=== PATIENT | female | born 1995 | race Caucasian/White ===

== ENCOUNTER → 2017-07-11 | Outpatient (CLI) | payer OTHER ==
[2017-07-11 11:02] LABS: CH 28.5; CHCM 34.1; HDW 2.95; HGB 11.3 gm/dL (11.4-16.0); MCHC 33.4 g/dL (31.0-37.0); MCV 83.9 fL (80.0-100.0); Mean Platelet Volume 6.3; RBC 4.05 m/uL (3.80-5.40); RDW 14.4 % (11.5-15.5); WBC 7.5 k/uL (3.8-10.6)
[2017-07-11 11:21] LABS: Glucose 100 mg/dL (74-99); Non-African American GFR(MDRD) >60 (>60 ml/min/1.73 sqM)
[2017-07-11 17:31] LABS: Treponemal Ab Non-Reactive (Non-Reactive)
== END | disposition home or self-care (01) ==
LOC: LABWHC1 10:44
PROVIDERS: ATTEND Obstetrics & Gynecology
DX: O26.812 Pregnancy related exhaustion and fatigue, second trimester (principal); Z3A.00 Weeks of gestation of pregnancy not specified
CPT/HCPCS: 36415; 82565; 82947; 85027; 86762; 86777; 86778; 86780; 86850; 86900; 86901; 87340; 87390

== ENCOUNTER 2017-11-12 16:08 | Emergency (ER) | payer OTHER ==
[2017-11-12 16:26] VITALS: BP 129/74; PULSE 102; RESP 16; TEMP 98
--- NOTE | 2017-11-12 16:41 | ED ---
Fall HPI - General Chief Complaint: Fall Stated Complaint: Fall-Foot Injury Time Seen by Provider: 11/12/17 16:29 Source: patient, RN notes reviewed, old records reviewed Mode of arrival: ambulatory - History of Present Illness Initial Comments: 22-year-old female presents emergency room with a chief complaint of right foot pain. Patient reports that she was carrying VGO-5-ddxm-old child down the stairs and she slipped at the third step and fell. She reports that she twisted her right foot and landed with her foot behind her. She states she fell down approximately 3 steps. She is currently 36 weeks . Patient states that she has pain mainly in her foot. She reports that she's been having some sciatic nerve issues during this entire . She reports that from her fall she's had a minor exacerbation of this pain. Patient states she's been able to walk on it. She has no vaginal bleeding, loss of fluid. She denies any abdominal pain or cramping. She reports that she feels like she cannot feel the baby moving as much which is tending to be somewhat unusual for her.Patient denies any recent fever, chills, shortness of breath, chest pain, back pain, abdominal pain, nausea vomiting, numbness or tingling, dysuria or hematuria, constipation or diarrhea, headaches or visual changes, or any other current symptoms - Related Data Previous Rx's Medication Instructions Recorded Acetaminophen-Codeine 300-30mg 1 each PO Q4HR PRN #30 tab 06/18/16 [Tylenol w/codeine #3] Ibuprofen [Motrin] 600 mg PO Q6HR PRN #60 tab 06/18/16 Allergies Allergy/AdvReac Type Severity Reaction Status Date / Time No Known Allergies Allergy Verified 11/12/17 16:22 Review of Systems ROS Statement: Those systems with pertinent positive or pertinent negative responses have been documented in the HPI. ROS Other: All systems not noted in ROS Statement are negative. Past Medical History Past Medical History: No Reported History History of Any Multi-Drug Resistant Organisms: None Reported Past Surgical History: No Surgical Hx Reported Past Anesthesia/Blood Transfusion Reactions: No Reported Reaction Past Psychological History: No Psychological Hx Reported Smoking Status: Former smoker Past Alcohol Use History: None Reported Past Drug Use History: None Reported - Past Family History Father History Unknown: Yes Family Medical History: No Reported History General Exam - General Exam Comments Initial Comments: This patient is a 22-year-old female. No distress. Limitations: no limitations General appearance: alert, in no apparent distress Head exam: Present: atraumatic, normocephalic, normal inspection Eye exam: Present: normal appearance, PERRL, EOMI. Absent: scleral icterus, conjunctival injection, periorbital swelling ENT exam: Present: normal exam, mucous membranes moist Neck exam: Present: normal inspection. Absent: tenderness, meningismus, lymphadenopathy Respiratory exam: Present: normal lung sounds bilaterally. Absent: respiratory distress, wheezes, rales, rhonchi, stridor Cardiovascular Exam: Present: regular rate, normal rhythm, normal heart sounds. Absent: systolic murmur, diastolic murmur, rubs, gallop, clicks GI/Abdominal exam: Present: soft, normal bowel sounds, other (Patient has obvious abdomen, she reports she started 6 weeks. No pain.). Absent: distended, tenderness, guarding, rebound, rigid Extremities exam: Present: normal inspection, full ROM, normal capillary refill. Absent: tenderness, pedal edema, joint swelling, calf tenderness Right Lower Leg exam: Present: normal inspection, full ROM Ankle exam: Present: normal inspection, full ROM Foot/Toe exam: Present: normal inspection, full ROM, tenderness (over dorsum of foot) Neurovascular tendon exam: Present: no vascular compromise Back exam: Present: normal inspection Neurological exam: Present: alert, oriented X3, CN II-XII intact Psychiatric exam: Present: normal affect, normal mood Course Vital Signs 11/12/17 16:22 Temperature 98 F Pulse Rate 102 H Respiratory 16 Rate Blood Pressure 129/74 O2 Sat by Pulse 98 Oximetry Medical Decision Making - Medical Decision Making This patient is a 22-year-old female currently 36 weeks reports she slipped down 3 stairs and twisted and rolled her right ankle. She also started having some sciatica pain rating down the right leg. It is slightly worsened the fall. Patient does have some pain and swelling over the dorsum of the right foot. X-ray was obtained shows no evidence of any acute abdomen or maladies. I discussed with patient. She also states that she feels like she cannot feel her baby moving as much over the past few days. We did do heart tones which were 130 bpm. patient was given an Chris wrap for her foot. Patient will be going upstairs for monitoring for the next half hour. Patient agrees to this. All questions were answered and return parameters discussed. Discussed icing, resting and elevating the foot. - Radiology Data Radiology results: report reviewed Patient has a normal right foot x-ray. Disposition Clinical Impression: Contusion of right foot, Fall, 36 weeks gestation of Disposition: HOME SELF-CARE Condition: Good Instructions: Foot Contusion (ED) Additional Instructions: Patient advised to follow-up with primary care provider and go directly to OB/ [employer] for monitoring after this. Wear the Chris wrap around the foot and ice it as much as possible. Patient can take Tylenol for pain. Referrals: None,Stated [Primary Care Provider] - 1-2 days Time of Disposition: 17:31
--- NOTE | 2017-11-12 16:56 | XR ---
EXAMINATION TYPE: XR foot complete RT DATE OF EXAM: 11/12/2017 COMPARISON: NONE HISTORY: Three-view right foot TECHNIQUE: Generalized pain following fall FINDINGS: Right foot is examined in 3 views. The patient was shielded during the exam. No acute fract ures are evident. Soft tissues appear normal. Follow-up exam can be performed 7-10 days from acute trauma for continued pain. IMPRESSION: 1. Normal three-view right foot
== END 2017-11-12 17:36 | disposition home or self-care (01) ==
LOC: EC 16:08
DX: O9A.213 Injury, poisoning and certain other consequences of external causes complicating pregnancy, third trimester (principal); S90.31XA Contusion of right foot, initial encounter; M54.30 Sciatica, unspecified side; Z87.891 Personal history of nicotine dependence; W10.9XXA Fall (on) (from) unspecified stairs and steps, initial encounter
CPT/HCPCS: 99284 ×2; 59025; 73630; G0463; 99213

== ENCOUNTER 2017-11-12 17:45 | Outpatient (CLI) | payer OTHER ==
[2017-11-12 18:35] VITALS: BP 132/72; PULSE 106; RESP 16; TEMP 97.6
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
== END 2017-11-12 19:10 | disposition home or self-care (01) ==
LOC: FBPOP 17:45
PROVIDERS: ATTEND Obstetrics & Gynecology
DX: O9A.213 Injury, poisoning and certain other consequences of external causes complicating pregnancy, third trimester (principal); G89.11 Acute pain due to trauma; Z3A.36 36 weeks gestation of pregnancy
CPT/HCPCS: 59025; G0463; 99213

== ENCOUNTER 2017-11-17 09:44 | Inpatient (IN) | payer OTHER ==
[2017-11-17] MEDS ORDERED: ceFAZolin IN SWFI 2 GM/20 ML SYRINGE IVP ONE ×2 (10:04→16:49)
[2017-11-17] MEDS ORDERED: CITRIC ACID-SODIUM CITRATE 15 ML CUP PO ONE (10:04)
[2017-11-17 10:24] VITALS: BMI 35.2
[2017-11-17] MEDS: LACTATED RINGERS 1,000 ML IV SCH ×2 (10:39→14:38)
[2017-11-17 12:12] LABS: Basophils % (A) 0 %; Eosinophils # (A) 0.1 k/uL (0-0.7); Eosinophils % (A) 1 %; HCT 31.9 % (34.0-46.0); HGB 10.4 gm/dL (11.4-16.0); Hypochromasia Slight; Lymphocytes # (A) 1.5 k/uL (1.0-4.8); Lymphocytes % (A) 21 %; MCH 25.9 pg (25.0-35.0); MCHC 32.7 g/dL (31.0-37.0); Mean Platelet Volume 10.1; Monocytes # (A) 0.3 k/uL (0-1.0); Monocytes % (A) 4 %; Neutrophils # (A) 5.3 k/uL (1.3-7.7); Neutrophils % (A) 73 %; Poikilocytosis Slight; RBC 4.03 m/uL (3.80-5.40); RDW 14.9 % (11.5-15.5); WBC 7.3 k/uL (3.8-10.6)
[2017-11-17 12:30] LABS: Platelet Count 30 k/uL (150-450)
[2017-11-17 12:31] LABS: MCV 79.2 fL (80.0-100.0)
[2017-11-17 14:32] LABS: Basophils % (A) 0 %; Eosinophils # (A) 0.1 k/uL (0-0.7); Eosinophils % (A) 1 %; HCT 31.3 % (34.0-46.0); HGB 10.4 gm/dL (11.4-16.0); Lymphocytes # (A) 1.6 k/uL (1.0-4.8); Lymphocytes % (A) 20 %; MCH 26.3 pg (25.0-35.0); MCHC 33.4 g/dL (31.0-37.0); MCV 78.8 fL (80.0-100.0); Mean Platelet Volume 11.6; Monocytes # (A) 0.2 k/uL (0-1.0); Monocytes % (A) 3 %; Neutrophils % (A) 75 %; Poikilocytosis Slight; RBC 3.97 m/uL (3.80-5.40); RDW 15.1 % (11.5-15.5); WBC 7.9 k/uL (3.8-10.6)
[2017-11-17 14:35] LABS: Platelet Count 29 k/uL (150-450)
[2017-11-17 14:46] LABS: Partial Thromboplastin Time 21.9 sec (22.0-30.0); Prothrombin Time 9.6 sec (9.0-12.0)
[2017-11-17 14:47] LABS: ALT 26 U/L (9-52); AST 18 U/L (14-36); Albumin 3.1 g/dL (3.5-5.0); Alkaline Phosphatase 180 U/L (38-126); Anion Gap 9 mmol/L; Blood Urea Nitrogen 6 mg/dL (7-17); Calcium 8.8 mg/dL (8.4-10.2); Carbon Dioxide 22 mmol/L (22-30); Chloride 106 mmol/L (98-107); Glucose 70 mg/dL (74-99); LDH 357 U/L (313-618); Potassium 3.9 mmol/L (3.5-5.1); Sodium 137 mmol/L (137-145); Total Bilirubin 0.7 mg/dL (0.2-1.3); Uric Acid 5.4 mg/dL (3.7-7.4)
[2017-11-17 14:59] LABS: Anisocytosis (M) Present; Poikilocytosis (M) Present
[2017-11-17 15:00] LABS: Large Platelets Present
[2017-11-17] MEDS ORDERED: ceFAZolin 1,000 MG VIAL ONE (17:09)
[2017-11-17] MEDS ORDERED: MIDAZOLAM 2 MG/2 ML VIAL ONE (17:09)
[2017-11-17] MEDS ORDERED: fentaNYL (PF) 50 MCG/ML 2 ML AMP ONE (17:09)
[2017-11-17] MEDS ORDERED: OXYTOCIN 10 UNIT/ML 1 ML VIAL ONE (17:09)
[2017-11-17] MEDS ORDERED: SUCCINYLCHOLINE CHLORIDE 100 MG/5 ML SYR IV ONE (17:09)
[2017-11-17] MEDS ORDERED: ROCURONIUM BROMIDE 10 MG/ML 10 ML VIAL IV ONE (17:09)
[2017-11-17] MEDS ORDERED: HYDROmorphone (PF) 1 MG/ML ONE (17:09)
[2017-11-17] MEDS ORDERED: NEOSTIGMINE 1 MG/ML 10 ML VIAL ONE (17:09)
[2017-11-17] MEDS ORDERED: ONDANSETRON 4 MG/2 ML VIAL ONE (17:09)
[2017-11-17] MEDS ORDERED: PROPOFOL 10 MG/ML 20 ML VIAL IV ONE (17:09)
[2017-11-17] MEDS ORDERED: LIDOCAINE 1% INJ 10MG/ML (20 ML MDV) ONE (17:09)
[2017-11-17] MEDS ORDERED: diphenhydrAMINE 50 MG CAP PO PRN (17:57)
[2017-11-17] MEDS ORDERED: ONDANSETRON 4 MG/2 ML VIAL IVP PRN (17:57)
[2017-11-17] MEDS ORDERED: NALOXONE 0.4 MG/ML 1 ML VIAL IV PRN (17:57)
[2017-11-17] MEDS ORDERED: diphenhydrAMINE 50 MG/ML 1 ML VIAL IVP PRN ×2 (17:57)
[2017-11-17] MEDS ORDERED: ZOLPIDEM 5 MG TAB PO PRN (17:57)
[2017-11-17] MEDS ORDERED: KETOROLAC 30 MG/ML 1 ML VIAL IVP PRN (17:57)
[2017-11-17] MEDS ORDERED: diphenhydrAMINE 25 MG CAP PO PRN (17:57)
[2017-11-17] MEDS ORDERED: METOCLOPRAMIDE 5 MG/ML 2 ML VIAL IVP PRN (17:57)
[2017-11-17] MEDS ORDERED: IBUPROFEN 600 MG TAB PO PRN (17:57)
[2017-11-17] MEDS ORDERED: ACETAMINOPHEN TAB 325 MG TAB PO PRN (17:57)
[2017-11-17] MEDS ORDERED: LACTATED RINGERS 1,000 ML IV SCH (18:00)
--- NOTE | 2017-11-17 18:02 | P.HPOB ---
History of Present Illness H&P Date: 11/17/17 Chief Complaint: Intrauterine at term: Spontaneous rupture membranes: Thrombocytop Patient is a 22-year-old with a prior section that comes in to labor and delivery this afternoon following spontaneous rupture of membranes. Her course had been unremarkable and she had been doing well. She was scheduled for section in 2 weeks. The only finding during the had been that of likely macrosomia. However today on the preop labs it was noted that her platelet count was extremely low. Repeat platelet count was 30,000. Due to significant thrombocytopenia it was decided to wait and not do her immediately and to defer it until platelets could be ordered. 2 units of same donor platelets were ordered and needed to be brought in from out of town. She did receive 2 doses of antibiotics as a precaution one on arrival and one shortly before incision. I did speak with hematology as well as M and this was coordinated effort to limit her wrists throughout this process. Her pertinent labs prior to this included O+ blood type Rh antibody was negative, rubella immune, hepatitis B surface antigen/RPR/HIV were all negative. Her last CBC was in August which showed a platelet count of 244, 000. 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 On physical exam vital signs are stable and afebrile. Heart regular, lungs clear, extremities are without pain. Osteopathic exams unremarkable. Her cervix was initially closed thick and high. heart tones were in the 130s to 140s and reactive however. Assessment intrauterine at 37 weeks with prior section family planning as well as thrombocytopenia. Plan repeat low transverse section with 2 units of platelets prior to incision and very close observation in the hospital. As well as tubal ligation with the section Past Medical History Past Medical History: No Reported History History of Any Multi-Drug Resistant Organisms: None Reported Past Surgical History: No Surgical Hx Reported Past Anesthesia/Blood Transfusion Reactions: No Reported Reaction Past Psychological History: No Psychological Hx Reported Smoking Status: Never smoker Past Alcohol Use History: None Reported Past Drug Use History: None Reported - Past Family History Father History Unknown: Yes Family Medical History: No Reported History Medications and Allergies Home Medications Medication Instructions Recorded Confirmed Type Pnv,Calcium 72/Iron/Folic Acid 1 tab PO DAILY 11/12/17 11/12/17 History [ Plus Tablet] Allergies Allergy/AdvReac Type Severity Reaction Status Date / Time No Known Allergies Allergy Verified 11/17/17 10:04 Exam Osteopathic Statement: *. No significant issues noted on an osteopathic structural exam other than those noted in the History and Physical/Consult. - Vital Signs Vital signs: Vital Signs Temp Pulse Pulse Resp BP BP Pulse Ox 11/17/17 16:38 98.2 F 101 H 16 125/71 11/17/17 16:28 98.0 F 95 16 125/63 98 11/17/17 15:59 98.2 F 100 16 131/76 11/17/17 15:58 97.9 F 96 18 123/73 11/17/17 15:49 98.0 F 94 18 120/77 11/17/17 10:41 96.9 F L 95 18 129/76 95 11/17/17 10:17 96.9 F L 95 16 129/76 99 Intake and Output 11/17/17 11/17/17 11/17/17 06:59 14:59 22:59 Intake Total 1000 415 Output Total 175 Balance 825 415 Intake: Intake, IV Titration 1000 Amount Lactated Ringers 1,000 ml 1000 @ 125 mls/hr IV .Q8H [facility] Rx#:[id number] Oral 0 Blood Product 415 Platelet Pheresis Acda2 214 Unit [id number] Platelet Pheresis Acda3 201 Unit [id number] Output: Urine 175 Other: Weight 90.265 kg Patient Weight 11/18/17 06:59 Weight 90.265 kg Results Result Diagrams: 11/17/17 14:21 11/17/17 14:21 Abnormal Lab Results - Last 24 Hours (Table) 11/17/17 11/17/17 11/17/17 Range/Units 11:45 14:21 14:21 Hgb 10.4 L (11.4-16.0) gm/dL Hct 31.9 L (34.0-46.0) % MCV 79.2 L D (80.0-100.0) fL Plt Count 30 L* D (150-450) k/uL Pathologist Review APTT 21.9 L (22.0-30.0) sec Fibrinogen 504 H (200-500) mg/dL BUN 6 L (7-17) mg/dL Creatinine 0.45 L (0.52-1.04) mg/dL Glucose 70 L (74-99) mg/dL Alkaline Phosphatase 180 H (38-126) U/L Total Protein 6.0 L (6.3-8.2) g/dL Albumin 3.1 L (3.5-5.0) g/dL 11/17/17 Range/Units 14:21 Hgb 10.4 L (11.4-16.0) gm/dL Hct 31.3 L (34.0-46.0) % MCV 78.8 L (80.0-100.0) fL Plt Count 29 L* (150-450) k/uL Pathologist Review See comment A APTT (22.0-30.0) sec Fibrinogen (200-500) mg/dL BUN (7-17) mg/dL Creatinine (0.52-1.04) mg/dL Glucose (74-99) mg/dL Alkaline Phosphatase (38-126) U/L Total Protein (6.3-8.2) g/dL Albumin (3.5-5.0) g/dL
--- NOTE | 2017-11-17 18:05 | P.OP ---
Date of Procedure: 11/17/17 Preoperative Diagnosis: Intrauterine at term: Prior section: Family planning: Thrombocytopenia Postoperative Diagnosis: Same Procedure(s) Performed: Repeat low transverse section with bilateral tubal occlusion Anesthesia: BETSY Surgeon: Freddy Funk Sock Drier #1: Kamlesh Monroe Estimated Blood Loss (ml): 400 IV fluids (ml): 900 Urine output (ml): 100 Pathology: other (Placenta) Condition: stable Disposition: floor Operative Findings: Male scores of 8 and 9 at one and 5 minutes respectively and a weight of 8 lbs. 3 oz. Description of Procedure: Patient was taken to the operating suite where a general anesthetic was found be adequate. General anesthetic was necessary due to low platelet count. Pfannenstiel skin incision was made and this incision was then carried through to underlying layer of the fascia with Bovie cautery. During this process any small bleeders were cauterized immediately. Once fascial incision was nicked it was extended laterally with Melara scissors. Superior and inferior aspect of this incision were then grasped tented up and bluntly and sharply dissected off the rectus muscles. Rectus muscles were then divided in the midline and blunt dissection through the peritoneum was made. This opening was then extended superiorly and inferiorly with good visualization of both bowel bladder. Bladder blade was then placed and the bladder flap was identified and entered with metastases scissors and carried across the face of the uterus with Metzenbaum scissors. Bladder flap was digitally created and removed from the operative field. Knife was then used to incise uterus this opening was fully developed with a hemostat and then was extended bluntly. Head was then atraumatically delivered and mouth nares were bulb suctioned. Shoulders then delivered followed by the remainder the baby and the umbilical cord was then clamped and cut in usual fashion. Nursery personnel was present to assume care. Placenta was then delivered intact and Pitocin was added to the IV. Uterus was then exteriorized cleared of clots and debris and closed in 2 layers with 0 Vicryl suture. Once excellent hemostasis was obtained 3-0 Vicryl used to reapproximate the bladder flap. Blood and debris was then suctioned the posterior cul-de-sac and fallopian tubes were identified. A Filshie clip was used to occlude the fallopian tubes it was clipped approximately 2 cm from uterine cornu. No bleeding is noted in the mesosalpinx therefore uterus was reinserted into the abdomen and the peritoneal layer was reapproximated with 0 Vicryl suture. Fascial layer was then closed Lobac suture one layer of 3-0 Vicryl was placed in the deep subcuticular tissues to reapproximate skin and close space and then the skin was closed Fahad. Overall patient tolerated surgery very well sponge, lap, needle counts were all correct 2. Patient was then taken to the recovery room in stable and satisfactory condition.
[2017-11-17] MEDS: HYDROmorphone PCA 5 MG/25 ML SYRINGE IV PRN ×2 (18:40→22:37)
[2017-11-17] MEDS: SENNOSIDES-DOCUSATE SODIUM 1 EACH TAB PO SCH (23:04)
--- NOTE | 2017-11-17 23:16 | P.CONS ---
History of Present Illness - Reason for Consult Consult date: 11/17/17 Thrombocytopenia - History of Present Illness The patient is a 22-year-old white female, with no significant past medical history. The patient was admitted for , due to rupture of membranes. She had actually been scheduled for an elective in about 2 weeks. Preop CBC showed a hemoglobin in the 10-11 range, with platelets of 30,000. In 09/06 platelets had an greater than 200,000. The patient did not have any other symptoms of petechia, purpura, or mucosal bleeding. She had platelet transfusion during the time of surgery and tolerated it well. Consult was placed for further evaluation and recommendations. The patient denied any prior history of blood related problems. This is her second , and she denied any problems with her previous . Review of Systems Constitutional: Reports fatigue, Denies chills, Denies fever Eyes: denies blurred vision, denies pain Ears: deny: decreased hearing, ear discharge, earache, tinnitus Ears, nose, mouth and throat: Denies headache, Denies sore throat Cardiovascular: Reports decreased exercise tolerance Respiratory: Denies cough Gastrointestinal: Denies abdominal pain, Denies diarrhea, Denies nausea, Denies vomiting Genitourinary: Denies dysuria, Denies hematuria Menstruation: Reports as per HPI (amenorrhea due to ) Musculoskeletal: Denies myalgias Integumentary: Denies pruritus, Denies rash Neurological: Denies numbness, Denies weakness Psychiatric: Denies anxiety, Denies depression Endocrine: Denies fatigue, Denies weight change Hematologic/Lymphatic: Reports as per HPI Past Medical History Past Medical History: No Reported History History of Any Multi-Drug Resistant Organisms: None Reported Past Surgical History: No Surgical Hx Reported Past Anesthesia/Blood Transfusion Reactions: No Reported Reaction Past Psychological History: No Psychological Hx Reported Smoking Status: Never smoker Past Alcohol Use History: None Reported Past Drug Use History: None Reported - Past Family History Father History Unknown: Yes Family Medical History: No Reported History Medications and Allergies Home Medications Medication Instructions Recorded Confirmed Type Pnv,Calcium 72/Iron/Folic Acid 1 tab PO DAILY 11/12/17 11/12/17 History [ Plus Tablet] Allergies Allergy/AdvReac Type Severity Reaction Status Date / Time No Known Allergies Allergy Verified 11/17/17 10:04 Physical Exam Vitals: Vital Signs Temp Pulse Pulse Resp BP BP Pulse Ox 11/17/17 20:00 97.7 F 97 16 127/66 96 11/17/17 19:56 97.7 F 97 16 127/66 96 11/17/17 19:23 102 H 16 141/72 97 11/17/17 18:56 94 16 145/71 98 11/17/17 18:41 97 16 153/72 95 11/17/17 18:26 96 16 147/69 96 11/17/17 18:11 99 16 140/66 97 11/17/17 17:56 98.2 F 100 16 133/64 97 11/17/17 16:38 98.2 F 101 H 16 125/71 11/17/17 16:28 98.0 F 95 16 125/63 98 11/17/17 15:59 98.2 F 100 16 131/76 11/17/17 15:58 97.9 F 96 18 123/73 11/17/17 15:49 98.0 F 94 18 120/77 11/17/17 10:41 96.9 F L 95 18 129/76 95 11/17/17 10:17 96.9 F L 95 16 129/76 99 Intake and Output 11/17/17 11/17/17 11/17/17 06:59 14:59 22:59 Intake Total 1000 1030 Output Total 175 975 Balance 825 55 Intake: IV 200 Intake, IV Titration 1000 Amount Lactated Ringers 1,000 ml 1000 @ 125 mls/hr IV .Q8H [facility] Rx#:[id number] Oral 0 Blood Product 830 Platelet Pheresis Acda2 214 Unit [id number] Platelet Pheresis Acda3 201 Unit [id number] Output: Urine 175 575 Estimated Blood Loss 400 Other: Voiding Method Indwelling Catheter Weight 90.265 kg Patient Weight 11/18/17 06:59 Weight 90.265 kg - Constitutional General appearance: no acute distress - EENT Eyes: EOMI, PERRLA ENT: hearing grossly normal, normal oropharynx - Neck Neck: no lymphadenopathy Thyroid: bilateral: normal size - Respiratory Respiratory: bilateral: CTA - Cardiovascular Rhythm: regular Heart sounds: normal: S1, S2 - Gastrointestinal no unusual bleeding from incision site General gastrointestinal: soft Localized gastrointestinal: tender: diffuse - Integumentary Integumentary: normal - Neurologic drowsy, due to pain medications, but easily arousable Neurologic: CNII-XII intact - Musculoskeletal Musculoskeletal: strength equal bilaterally - Psychiatric Psychiatric: A&O x's 3, appropriate affect Results CBC & Chem 7: 11/17/17 14:21 11/17/17 14:21 Labs: Abnormal Lab Results - Last 24 Hours (Table) 11/17/17 11/17/17 11/17/17 Range/Units 11:45 14:21 14:21 Hgb 10.4 L (11.4-16.0) gm/dL Hct 31.9 L (34.0-46.0) % MCV 79.2 L D (80.0-100.0) fL Plt Count 30 L* D (150-450) k/uL Pathologist Review APTT 21.9 L (22.0-30.0) sec Fibrinogen 504 H (200-500) mg/dL BUN 6 L (7-17) mg/dL Creatinine 0.45 L (0.52-1.04) mg/dL Glucose 70 L (74-99) mg/dL Alkaline Phosphatase 180 H (38-126) U/L Total Protein 6.0 L (6.3-8.2) g/dL Albumin 3.1 L (3.5-5.0) g/dL 11/17/17 Range/Units 14:21 Hgb 10.4 L (11.4-16.0) gm/dL Hct 31.3 L (34.0-46.0) % MCV 78.8 L (80.0-100.0) fL Plt Count 29 L* (150-450) k/uL Pathologist Review See comment A APTT (22.0-30.0) sec Fibrinogen (200-500) mg/dL BUN (7-17) mg/dL Creatinine (0.52-1.04) mg/dL Glucose (74-99) mg/dL Alkaline Phosphatase (38-126) U/L Total Protein (6.3-8.2) g/dL Albumin (3.5-5.0) g/dL Comments: operative report reviewed Assessment and Plan (1) Thrombocytopenia Narrative/Plan: there is no prior history of blood related problems. The patient was asymptomatic at the time of presentation. Platelet counts in 09/06 had been normal. - The peripheral smear and noted some RBC fragments. This was initially concerning for a microangiopathic consumptive process. Therefore multiple labs were ordered and immediately reviewed. Liver enzymes, as well as renal function were normal. Coagulation parameters and fibrinogen were also normal. Hemoglobin was mildly decreased, in the expected range for the third trimester , and remained stable postsurgery. Therefore processes such as HELLP syndrome, TTP, or DIC can be safely ruled out. - Dilutional induced thrombocytopenia is unlikely, as in no situation platelet counts were relatively fall below 80-100,000. 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 The pathophysiology was discussed in detail with the patient. Other than for surgery or invasive procedures, her current count would be considered generally safe. She is asymptomatic as noted. Typically, counts would be expected to improve spontaneously over time postdelivery. If counts were to decline further and/or she showed evidence of bleeding, then active intervention will be required. - Continue to monitor counts. - Workup for underlying causes will be ordered. - I will recommend a follow-up with the patient in about 2-3 weeks in the office to follow up her platelet counts. - Roddy, thrombus or neutropenia can occur in the baby due to passive transfer of maternal antibodies. The baby has no evidence of petechia, purpura or unusual bleeding, including from the umbilical stump. A CBC can be considered, to document normal platelet count. Current Visit: Yes Status: Acute Code(s): D69.6 - THROMBOCYTOPENIA, UNSPECIFIED SNOMED Code(s): 953304856
[2017-11-18] MEDS: LACTATED RINGERS 1,000 ML IV SCH (04:11)
[2017-11-18 07:04] LABS: Basophils % (A) 0 %; Eosinophils % (A) 0 %; HCT 29.4 % (34.0-46.0); HGB 9.9 gm/dL (11.4-16.0); Lymphocytes # (A) 1.4 k/uL (1.0-4.8); Lymphocytes % (A) 14 %; MCH 26.4 pg (25.0-35.0); MCHC 33.6 g/dL (31.0-37.0); MCV 78.4 fL (80.0-100.0); Mean Platelet Volume 11.3; Monocytes # (A) 0.4 k/uL (0-1.0); Monocytes % (A) 4 %; Neutrophils # (A) 7.9 k/uL (1.3-7.7); Neutrophils % (A) 80 %; RBC 3.75 m/uL (3.80-5.40); RDW 15.3 % (11.5-15.5); WBC 9.8 k/uL (3.8-10.6)
[2017-11-18 07:24] LABS: Platelet Count 36 k/uL (150-450)
[2017-11-18] MEDS: HYDROmorphone PCA 5 MG/25 ML SYRINGE IV PRN (07:56)
[2017-11-18] MEDS: SENNOSIDES-DOCUSATE SODIUM 1 EACH TAB PO SCH ×2 (08:15→19:38)
[2017-11-18 12:11] LABS: Protein, Total 5.5 g/dL (6.2-8.2); Rheumatoid Factor 5 IU/mL (0-15)
--- NOTE | 2017-11-18 12:16 | P.PNOBGPC ---
Subjective - Subjective Principal diagnosis: Postop day 1 Interval history: Overall illicit is doing very well. She is able to ambulate and void. She does report some incisional tenderness but otherwise is doing well. 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 Her vital signs are stable and she is afebrile. Heart regular, lungs clear, extremities without pain. We did review the labs today and her hemoglobin is essentially stable at 9.9 her platelets however 36 will defer that further workup to hematology. Otherwise we'll plan to continue current care. Patient reports: Reports appetite normal, Reports voiding normally, Reports pain well controlled, Reports ambulating normally : doing well Objective - Vital Signs Latest vital signs: Vital Signs Temp Pulse Pulse Resp BP BP Pulse Ox 11/18/17 08:00 97.6 F 97 18 122/64 96 11/18/17 04:00 98.3 F 85 16 125/66 11/18/17 00:00 98.1 F 95 16 123/61 99 11/17/17 20:00 97.7 F 97 16 127/66 96 11/17/17 19:56 97.7 F 97 16 127/66 96 11/17/17 19:23 102 H 16 141/72 97 11/17/17 18:56 94 16 145/71 98 11/17/17 18:41 97 16 153/72 95 11/17/17 18:26 96 16 147/69 96 11/17/17 18:11 99 16 140/66 97 11/17/17 17:56 98.2 F 100 16 133/64 97 11/17/17 16:38 98.2 F 101 H 16 125/71 11/17/17 16:28 98.0 F 95 16 125/63 98 11/17/17 15:59 98.2 F 100 16 131/76 11/17/17 15:58 97.9 F 96 18 123/73 11/17/17 15:49 98.0 F 94 18 120/77 Intake and Output 11/17/17 11/18/17 11/18/17 22:59 06:59 14:59 Intake Total 1030 Output Total 975 1350 400 Balance 55 -1350 -400 Intake: IV 200 Blood Product 830 Platelet Pheresis Acda2 214 Unit [id number] Platelet Pheresis Acda3 201 Unit [id number] Output: Urine 575 1350 400 Uretheral (Schultz) 750 Estimated Blood Loss 400 Other: Voiding Method Indwelling Catheter # Voids 1 1 - Exam Lungs: bilateral: normal - Labs Labs: Abnormal Lab Results - Last 24 Hours (Table) 11/17/17 11/17/17 11/17/17 Range/Units 11:45 14:21 14:21 RBC (3.80-5.40) m/uL Hgb 10.4 L (11.4-16.0) gm/dL Hct 31.9 L (34.0-46.0) % MCV 79.2 L D (80.0-100.0) fL Plt Count 30 L* D (150-450) k/uL Neutrophils # (1.3-7.7) k/uL Pathologist Review APTT 21.9 L (22.0-30.0) sec Fibrinogen 504 H (200-500) mg/dL BUN 6 L (7-17) mg/dL Creatinine 0.45 L (0.52-1.04) mg/dL Glucose 70 L (74-99) mg/dL Alkaline Phosphatase 180 H (38-126) U/L Total Protein 6.0 L (6.3-8.2) g/dL Albumin 3.1 L (3.5-5.0) g/dL 11/17/17 11/18/17 Range/Units 14:21 06:41 RBC 3.75 L (3.80-5.40) m/uL Hgb 10.4 L 9.9 L (11.4-16.0) gm/dL Hct 31.3 L 29.4 L (34.0-46.0) % MCV 78.8 L 78.4 L (80.0-100.0) fL Plt Count 29 L* 36 L* (150-450) k/uL Neutrophils # 7.9 H (1.3-7.7) k/uL Pathologist Review See comment A APTT (22.0-30.0) sec Fibrinogen (200-500) mg/dL BUN (7-17) mg/dL Creatinine (0.52-1.04) mg/dL Glucose (74-99) mg/dL Alkaline Phosphatase (38-126) U/L Total Protein (6.3-8.2) g/dL Albumin (3.5-5.0) g/dL
[2017-11-18] MEDS: HYDROcodone/APAP 5-325MG 1 EACH TAB PO PRN ×2 (13:02→21:16)
[2017-11-19] MEDS: HYDROcodone/APAP 5-325MG 1 EACH TAB PO PRN ×6 (02:00→23:47)
[2017-11-19] MEDS: SENNOSIDES-DOCUSATE SODIUM 1 EACH TAB PO SCH (07:37)
--- NOTE | 2017-11-19 08:39 | P.PNOBGPC ---
Subjective - Subjective Principal diagnosis: Postop day 2 Interval history: Laisha is doing very well postop day 2. She is involuting, voiding and she is tolerating her diet. At this time she repairs very stable and will plan to continue observation today with expectation that we may be able to discharge her to home tomorrow. All other questions are answered for for today. Heart regular, lungs clear, extremities without pain. Most likely she will only have to follow up outpatient with hematology and verify that her platelets are trending backup now that her deliveries complete. Assessment postop day 2. Plan continue care Patient reports: Reports appetite normal, Reports voiding normally, Reports pain well controlled, Reports ambulating normally : doing well Objective - Vital Signs Latest vital signs: Vital Signs Temp Pulse Resp BP Pulse Ox 11/19/17 08:00 98.6 F 90 18 125/74 11/19/17 00:00 99.0 F 82 18 126/78 11/18/17 16:00 98.6 F 99 20 115/69 96 Intake and Output 11/18/17 11/19/17 11/19/17 22:59 06:59 14:59 Other: # Voids 2 - Exam Lungs: bilateral: normal Chest: Normal S1, Normal S2 Extremities: Present: normal Abdomen: Present: normal appearance, soft. Absent: distention, tenderness Incision: Present: normal, dry, intact Uterus: Present: normal, firm - Labs Labs: Abnormal Lab Results - Last 24 Hours (Table) 11/18/17 11/18/17 Range/Units 06:41 06:41 Total Protein (PEP) 5.5 L (6.2-8.2) g/dL RBC Folate 1,064 H (280 - 791) ng/mL Free [place] LC, Quant 0.19 L (0.33-1.94) mg/dL
--- NOTE | 2017-11-19 19:38 | P.PN ---
Subjective Progress Note Date: 11/19/17 Principal diagnosis: Thrombocytopenia Patient seen and examined, no severe bleeding or increased bleeding, no petechae or rash noted. Objective - Vital Signs Vital signs: Vital Signs Temp 98.4 F 11/19/17 15:22 Pulse 107 H 11/19/17 15:22 Resp 18 11/19/17 15:22 BP 130/75 11/19/17 15:22 Pulse Ox 96 11/18/17 16:00 Intake & Output 11/18/17 11/19/17 11/19/17 18:59 06:59 18:59 Output Total 400 Balance -400 Output: Urine 400 Other: # Voids 1 2 1 - Constitutional General appearance: Present: cooperative, no acute distress - EENT Eyes: Present: dentition normal, normal appearance ENT: Present: NA/AT, normal oropharynx - Neck Neck: Present: normal ROM - Respiratory Respiratory: bilateral: CTA - Cardiovascular Rhythm: regular Heart sounds: normal: S1, S2 - Gastrointestinal General gastrointestinal: Present: normal bowel sounds, tenderness - Integumentary Integumentary: Present: normal - Neurologic Neurologic Comment(s): No focal defects - Musculoskeletal Musculoskeletal: Present: gait normal - Psychiatric Psychiatric: Present: A&O x's 3, appropriate affect, intact judgment & insight - Labs CBC & Chem 7: 11/18/17 06:41 11/17/17 14:21 Labs: Abnormal Lab Results - Last 24 Hours (Table) 11/18/17 Range/Units 06:41 RBC Folate 1,064 H (280 - 791) ng/mL Assessment and Plan (1) Thrombocytopenia Narrative/Plan: This is most c/w ITP. The plt counts are in a safe range, with no clinical bleeding. These are typically expected to improve post delivery. W/U for other underlying causes negative so far -CBC today and appointment for follow-up made for patient in office in 2 wks. - Case d/w Peds re small risk of passive transfer of antibodies to the baby. The baby's CBC was checked and was normal - S/s of progression d/w pt - OK to d/c from our standpoint Current Visit: Yes Status: Acute Code(s): D69.6 - THROMBOCYTOPENIA, UNSPECIFIED SNOMED Code(s): 147204594
[2017-11-20] MEDS: HYDROcodone/APAP 5-325MG 1 EACH TAB PO PRN ×2 (04:27→08:03)
[2017-11-20 04:31] VITALS: RESP 16
[2017-11-20] MEDS: SENNOSIDES-DOCUSATE SODIUM 1 EACH TAB PO SCH ×2 (06:10→08:03)
[2017-11-20 07:59] VITALS: BP 121/71; PULSE 83; TEMP 98.5
[2017-11-20 08:04] LABS: Basophils % (A) 0 %; Eosinophils # (A) 0.2 k/uL (0-0.7); Eosinophils % (A) 2 %; HCT 27.1 % (34.0-46.0); HGB 8.8 gm/dL (11.4-16.0); Lymphocytes % (A) 29 %; MCHC 32.6 g/dL (31.0-37.0); MCV 79.8 fL (80.0-100.0); Mean Platelet Volume 10.9; Monocytes # (A) 0.3 k/uL (0-1.0); Monocytes % (A) 4 %; Neutrophils # (A) 4.3 k/uL (1.3-7.7); Neutrophils % (A) 63 %; RBC 3.39 m/uL (3.80-5.40); RDW 15.7 % (11.5-15.5); WBC 6.9 k/uL (3.8-10.6)
[2017-11-20 08:08] LABS: Platelet Count 42 k/uL (150-450)
--- NOTE | 2017-11-20 09:18 | P.DS ---
Providers Date of admission: 11/17/17 10:03 Expected date of discharge: 11/20/17 Attending physician: Freddy Funk Consults: 11/17/17 13:07 Consult Physician Stat Consulting Provider: Shahzad Lemus Consult Reason/Comments: PLT 30, 37/2 WEEKS GESTATION PREVIOUS SECTION. RUPTURED MEMBRANES Do you want consulting provider notified?: Yes Primary care physician: Stated None Hospital Course: Hleena is doing very well post op day 3. She is ambulating, voiding, and she is tolerating her diet. She voices no complaints and is requesting discharge home. It is noted that her platelet count is up to 42,000. We'll have her call placed to hematology to verify there is no other treatments they required for her to have done prior to her discharge but she is overall stable for discharge this time. Her vital signs are stable she is afebrile. Heart regular , lungs clear, extremities without pain. Her abdomen soft her uterus is firm and her incision is clean dry and intact. We'll plan to remove marlo today. A prescription for Wyola has been provided. All the questions are answered for her prior to her discharge. She'll follow me in [address] Lancaster in 2 weeks. Assessment postop day 3 from section. Thrombocytopenia slowly improving Patient Condition at Discharge: Good Plan - Discharge Summary Discharge Rx Participant: No New Discharge Prescriptions: New HYDROcodone/APAP 5-325MG [[place] 5-325] 1 tab PO Q4HR PRN #30 tab PRN Reason: Pain No Action Pnv,Calcium 72/Iron/Folic Acid [ Plus Tablet] 1 tab PO DAILY Discharge Medication List Pnv,Calcium 72/Iron/Folic Acid [ Plus Tablet] 1 tab PO DAILY 11/12/17 [ History] HYDROcodone/APAP 5-325MG [[place] 5-325] 1 tab PO Q4HR PRN #30 tab 11/20/17 [Rx] Follow up Appointment(s)/Referral(s): Denny Moser MD [STAFF PHYSICIAN] - 12/03/17 10:45 am (Appt at [facility] location [phone]) Freddy Funk DO [Doctor of Osteopathic Medicine] - 1 Week Activity/Diet/Wound Care/Special Instructions: No heavy lifting, limit stairs and driving, and pelvic rest. If any high temperatures, heavy bleeding, or severe pain call my office Discharge Disposition: HOME SELF-CARE
[2017-11-20 11:04] LABS: Gamma Globulin 0.67 g/dL (0.70-1.50)
[2017-11-20 13:09] LABS: Methylmalonic Acid 0.14 umol/L (<0.40)
== END 2017-11-20 12:15 | disposition home or self-care (01) | DRG 765 ==
LOC: FBPOP 09:44 → 4FBP 10:03
PROVIDERS: ADMIT Obstetrics & Gynecology; ATTEND Obstetrics & Gynecology
PROC: 0UL70CZ Occlusion of Bilateral Fallopian Tubes with Extraluminal Device, Open Approach (ICD-10-PCS; 2017-11-17)
PROC: 30233R1 Transfusion of Nonautologous Platelets into Peripheral Vein, Percutaneous Approach (ICD-10-PCS; 2017-11-17)
PROC: 00HU33Z Insertion of Infusion Device into Spinal Canal, Percutaneous Approach (ICD-10-PCS; 2017-11-17)
PROC: 3E0R3NZ Introduction of Analgesics, Hypnotics, Sedatives into Spinal Canal, Percutaneous Approach (ICD-10-PCS; 2017-11-17)
PROC: 10D00Z1 Extraction of Products of Conception, Low, Open Approach (ICD-10-PCS; principal; 2017-11-17 17:15)
DX: O34.211 Maternal care for low transverse scar from previous cesarean delivery (principal); D69.3 Immune thrombocytopenic purpura; O99.12 Other diseases of the blood and blood-forming organs and certain disorders involving the immune mechanism complicating childbirth; O36.63X0 Maternal care for excessive fetal growth, third trimester, not applicable or unspecified; Z37.0 Single live birth; Z3A.37 37 weeks gestation of pregnancy; Z90.49 Acquired absence of other specified parts of digestive tract
CPT/HCPCS: 59025; 80053; 82607; 82747; 83010; 83615; 83883; 83921; 84112; 84165; 84550; 85025; 85384; 85610; 85730; 86038; 86334; 86431; 86850; 86900; 86901; 88307; 99213

== ENCOUNTER 2018-11-01 18:41 | Emergency (ER) | payer BC, OTHER ==
[2018-11-01 19:26] VITALS: BP 142/92; PULSE 84; RESP 18; TEMP 98.9
[2018-11-01] MEDS ORDERED: SODIUM CHLORIDE 0.9% 1,000 ML IV ONE (21:16)
[2018-11-01] MEDS ORDERED: METOCLOPRAMIDE 5 MG/ML 2 ML VIAL IVP STA (21:16)
[2018-11-01] MEDS ORDERED: diphenhydrAMINE 50 MG/ML 1 ML VIAL IVP STA (21:16)
--- NOTE | 2018-11-01 21:16 | ED ---
Headache HPI - General Chief Complaint: Headache Stated Complaint: headache Time Seen by Provider: 11/01/18 21:15 Mode of arrival: ambulatory Limitations: no limitations - History of Present Illness Initial Comments: Avril is a previously healthy 23-year-old female who presents the emergency department today for evaluation of persistent headache for 5 days duration. Patient reports she's had a constant headache for approximately 5 days she's been taking [id number] aspirin with no relief she has not tried Excedrin, Tylenol or Motrin. She reports the pain is generalized worse with bright lights or sound. There is no associated focal neurologic deficits, fevers, vision change, weakness. Patient has no history of migraines though she does admit she's had headaches intermittently of a don't usually last this long. - Related Data Home Medications Medication Instructions Recorded Confirmed Aspirin 325 - 650 mg PO Q6H PRN 11/01/18 11/01/18 Allergies Allergy/AdvReac Type Severity Reaction Status Date / Time No Known Allergies Allergy Verified 11/01/18 21:44 Review of Systems ROS Statement: Those systems with pertinent positive or pertinent negative responses have been documented in the HPI. ROS Other: All systems not noted in ROS Statement are negative. Past Medical History Past Medical History: No Reported History History of Any Multi-Drug Resistant Organisms: None Reported Past Surgical History: Section, Cholecystectomy Past Anesthesia/Blood Transfusion Reactions: No Reported Reaction Past Psychological History: No Psychological Hx Reported Smoking Status: Never smoker Past Alcohol Use History: Rare Past Drug Use History: None Reported - Past Family History Father History Unknown: Yes Family Medical History: No Reported History General Exam - General Exam Comments Initial Comments: Physical Exam GENERAL: Patient is well-developed and well-nourished appears well-hydrated Patient is nontoxic and well-hydrated and is in no distress. HENT: Normocephalic, Atraumatic. EYES: PERRL, EOMI PULMONARY: Unlabored respirations. No audible rales rhonchi or wheezing was noted. CARDIOVASCULAR: There is a regular rate and rhythm without any murmurs gallops or rubs. ABDOMEN: Soft and nontender with normal bowel sounds. SKIN: Skin is clear with no lesions or rashes and otherwise unremarkable. Multiple tattoos on the face and neck : Deferred NEUROLOGIC: Patient is alert and oriented x3. Moving all extremities spontaneously Cranial nerves 2 through 12 grossly intact MUSCULOSKELETAL: Normal extremities with adequate strength and full range of motion. No lower extremity swelling or edema. No calf tenderness. PSYCHIATRIC: Normal psychiatric evaluation. Limitations: no limitations Limitations: no limitations Course Vital Signs 11/01/18 19:23 Temperature 98.9 F Pulse Rate 84 Respiratory 18 Rate Blood Pressure 142/92 O2 Sat by Pulse 100 Oximetry Medical Decision Making - Medical Decision Making Patient was seen and evaluated patient with 5 days of generalized headache worse with loud noises or bright lights, no red flag symptoms Physical exams unremarkable Vital signs unremarkable Migraine cocktail was ordered The patient was reevaluated after medication she reports significant improvement in her headache and is agreeable to plan for discharge home All questions pertaining to care were answered, supportive care for headache including [id number] medications were discussed, return parameters were discussed patient discharged home in stable condition - Lab Data Lab Results 11/01/18 11/01/18 Range/Units 21:30 21:30 Urine Color Light Yellow Urine Appearance Clear (Clear) Urine pH 6.0 (5.0-8.0) Ur Specific [place] 1.007 (1.001-1.035) Urine Protein Negative (Negative) Urine Glucose (UA) Negative (Negative) Urine Ketones Negative (Negative) Urine Blood Negative (Negative) Urine Nitrite Negative (Negative) Urine Bilirubin Negative (Negative) Urine Urobilinogen <2.0 (<2.0) mg/dL Ur Leukocyte Esterase Negative (Negative) Urine HCG, Qual Not Detected (Not Detectd) Disposition Clinical Impression: Headache Disposition: HOME SELF-CARE Condition: Stable Instructions (If sedation given, give patient instructions): Acute Headache (ED ) Is patient prescribed a controlled substance at d/c from ED?: No Referrals: None,Stated [Primary Care Provider] - 1-2 days Time of Disposition: 23:06
[2018-11-01] MEDS ORDERED: KETOROLAC 30 MG/ML 1 ML VIAL IVP STA (21:38)
[2018-11-01 21:44] LABS: Appearance,Urine Clear (Clear); Bilirubin,Urine Negative (Negative); Blood,Urine Negative (Negative); Color,Urine Light Yellow; Glucose,Urine (UA) Negative (Negative); Ketones,Urine Negative (Negative); Leukocyte Esterase,Urine Negative (Negative); Nitrite,Urine Negative (Negative); Protein,Urine Negative (Negative); Specific Gravity,Urine 1.007 (1.001-1.035); Urobilinogen,Urine <2.0 mg/dL (<2.0)
[2018-11-02] MEDS ORDERED: KETOROLAC 30 MG/ML 1 ML VIAL IVP SCH
== END 2018-11-01 23:13 | disposition home or self-care (01) ==
LOC: EC 18:41
DX: R51 Headache (principal); Z32.02 Encounter for pregnancy test, result negative
CPT/HCPCS: 81003; 81025; 99284; 96374; 96375 ×2; 96361; J1200; J2765; J1885

== ENCOUNTER → 2019-02-16 | Outpatient (CLI) | payer BC ==
[2019-02-16 15:42] LABS: HCT 37.6 % (34.0-46.0); HGB 12.5 gm/dL (11.4-16.0); MCH 26.9 pg (25.0-35.0); MCHC 33.2 g/dL (31.0-37.0); MCV 80.9 fL (80.0-100.0); Platelet Count 294 k/uL (150-450); RBC 4.65 m/uL (3.80-5.40); RDW 14.2 % (11.5-15.5); WBC 8.6 k/uL (3.8-10.6)
[2019-02-16 15:53] LABS: Partial Thromboplastin Time 25.5 sec (22.0-30.0); Prothrombin Time 10.3 sec (9.0-12.0)
[2019-02-17 03:01] LABS: Albumin 4.6 g/dL (3.80-4.90); Albumin/Globulin Ratio 2.19 (1.60-3.17); Calcium 9.6 mg/dL (8.7-10.3); Globulin 2.1 g/dL (1.6-3.3); Potassium 4.3 mmol/L (3.5-5.5); Total Bilirubin 0.6 mg/dL (0.3-1.2); Total Protein 6.7 g/dL (6.2-8.2)
== END | disposition home or self-care (01) ==
LOC: LABWHC1 14:50
PROVIDERS: ATTEND Plastic Surgery
DX: Z01.812 Encounter for preprocedural laboratory examination (principal); D64.9 Anemia, unspecified; E87.8 Other disorders of electrolyte and fluid balance, not elsewhere classified; D68.9 Coagulation defect, unspecified
CPT/HCPCS: 36415; 80053; 85027; 85610; 85730

== ENCOUNTER 2019-03-30 20:56 | Emergency (ER) | payer BC ==
[2019-03-30 21:34] VITALS: BP 140/89; PULSE 112; RESP 20; TEMP 98.6
--- NOTE | 2019-03-30 21:49 | ED ---
Skin/Abscess/FB HPI - General Chief complaint: Skin/Abscess/Foreign Body Stated complaint: post op issue Time Seen by Provider: 03/30/19 21:41 Source: patient, RN notes reviewed, old records reviewed Mode of arrival: ambulatory Limitations: no limitations - History of Present Illness Initial comments: This is a 23-year-old female the ER for evaluation. Patient does say for evaluation regards to wound check. Patient presents today for evaluation of healing wounds. Patient recently had breast implants, surgery. Concern for breakfast at his of scars. Patient has no drainage from wounds. No pain. No fevers. No other complaints MD complaint: other (Recheck wound, sutures) -: hour(s) Tetanus Up to Date: yes Location: generalized (Bilateral breasts) Severity: mild Consistency: constant Improves with: none Worsens with: none Context: none - Related Data Home Medications Medication Instructions Recorded Confirmed Cephalexin [Keflex] 500 mg PO TID 03/30/19 03/30/19 Diazepam 10 mg PO Q8H PRN 03/30/19 03/30/19 Montelukast [Singulair] 10 mg PO DAILY 03/30/19 03/30/19 Allergies Allergy/AdvReac Type Severity Reaction Status Date / Time acetaminophen [From Laura] Allergy Itching Verified 03/30/19 21:54 hydrocodone [From Laura] Allergy Itching Verified 03/30/19 21:54 Review of Systems ROS Statement: Those systems with pertinent positive or pertinent negative responses have been documented in the HPI. ROS Other: All systems not noted in ROS Statement are negative. Past Medical History Past Medical History: No Reported History History of Any Multi-Drug Resistant Organisms: None Reported Past Surgical History: Section, Cholecystectomy Additional Past Surgical History / Comment(s): "Mommy makeover" Past Anesthesia/Blood Transfusion Reactions: No Reported Reaction Past Psychological History: No Psychological Hx Reported Smoking Status: Former smoker Past Alcohol Use History: Rare Past Drug Use History: None Reported - Past Family History Father History Unknown: Yes Family Medical History: No Reported History General Exam - General Exam Comments Initial Comments: Patient has bilateral breast surgery, she does have healing areas around the sutures, no drainage no evidence of infection, some dark areas likely had significant Limitations: no limitations General appearance: alert, in no apparent distress Head exam: Present: atraumatic, normocephalic, normal inspection Eye exam: Present: normal appearance, PERRL, EOMI. Absent: scleral icterus, conjunctival injection, periorbital swelling ENT exam: Present: normal exam, mucous membranes moist Neck exam: Present: normal inspection. Absent: tenderness, meningismus, lymphadenopathy Respiratory exam: Present: normal lung sounds bilaterally. Absent: respiratory distress, wheezes, rales, rhonchi, stridor Cardiovascular Exam: Present: regular rate, normal rhythm, normal heart sounds. Absent: systolic murmur, diastolic murmur, rubs, gallop, clicks GI/Abdominal exam: Present: soft, normal bowel sounds. Absent: distended, tenderness, guarding, rebound, rigid Extremities exam: Present: normal inspection, full ROM, normal capillary refill. Absent: tenderness, pedal edema, joint swelling, calf tenderness Back exam: Present: normal inspection Neurological exam: Present: alert, oriented X3, CN II-XII intact Psychiatric exam: Present: normal affect, normal mood Skin exam: Present: warm, dry, intact, normal color. Absent: rash Course Vital Signs 03/30/19 21:29 Temperature 98.6 F Pulse Rate 112 H Respiratory 20 Rate Blood Pressure 140/89 O2 Sat by Pulse 97 Oximetry Medical Decision Making - Medical Decision Making 23 female the ER for evaluation, patient has well-healing surgical site scars and tissue. Patient can be discharged home Disposition Clinical Impression: Encounter for wound re-check Disposition: HOME SELF-CARE Condition: Good Instructions (If sedation given, give patient instructions): Acute Wound Care (ED) Is patient prescribed a controlled substance at d/c from ED?: No Referrals: None,Stated [Primary Care Provider] - 1-2 days
== END 2019-03-30 22:25 | disposition home or self-care (01) ==
LOC: EC 20:56
DX: Z48.01 Encounter for change or removal of surgical wound dressing (principal); Z87.891 Personal history of nicotine dependence; Z79.899 Other long term (current) drug therapy; Z88.6 Allergy status to analgesic agent; Z88.5 Allergy status to narcotic agent
CPT/HCPCS: 99283

== ENCOUNTER 2019-12-12 23:13 | Emergency (ER) | payer BC ==
[2019-12-12 23:21] VITALS: TEMP 99.2
[2019-12-12] MEDS ORDERED: KETOROLAC 30 MG/ML 1 ML VIAL IVP STA (23:32)
[2019-12-12 23:38] LABS: Appearance,Urine Clear (Clear); Bilirubin,Urine Negative (Negative); Blood,Urine Negative (Negative); Color,Urine Yellow; Glucose,Urine (UA) Negative (Negative); Ketones,Urine Negative (Negative); Leukocyte Esterase,Urine Negative (Negative); Nitrite,Urine Negative (Negative); Protein,Urine Negative (Negative); Specific Gravity,Urine 1.028 (1.001-1.035)
[2019-12-12 23:58] LABS: ALT 16 U/L (4-34); AST 19 U/L (14-36); African American GFR (CKD) >90 (>60 ml/min/1.73 sqM); Albumin 4.7 g/dL (3.5-5.0); Alkaline Phosphatase 101 U/L (38-126); Anion Gap 8 mmol/L; Blood Urea Nitrogen 12 mg/dL (7-17); Calcium 9.6 mg/dL (8.4-10.2); Carbon Dioxide 27 mmol/L (22-30); Chloride 103 mmol/L (98-107); Glucose 93 mg/dL (74-99); Non-African American GFR(CKD) >90 (>60 ml/min/1.73 sqM); Potassium 4.2 mmol/L (3.5-5.1); Sodium 138 mmol/L (137-145); Total Bilirubin 0.4 mg/dL (0.2-1.3); Total Protein 7.9 g/dL (6.3-8.2)
[2019-12-13 00:11] LABS: Basophils % (A) 0 %; Eosinophils # (A) 0.2 k/uL (0-0.7); Eosinophils % (A) 2 %; HCT 39.4 % (34.0-46.0); HGB 13.3 gm/dL (11.4-16.0); Lymphocytes # (A) 3.2 k/uL (1.0-4.8); Lymphocytes % (A) 32 %; MCH 27.1 pg (25.0-35.0); MCHC 33.8 g/dL (31.0-37.0); MCV 80.3 fL (80.0-100.0); Mean Platelet Volume 6.6; Monocytes # (A) 0.3 k/uL (0-1.0); Monocytes % (A) 3 %; Neutrophils # (A) 6.1 k/uL (1.3-7.7); Neutrophils % (A) 61 %; Platelet Count 330 k/uL (150-450); RBC 4.91 m/uL (3.80-5.40); RDW 13.6 % (11.5-15.5)
--- NOTE | 2019-12-13 00:24 | US ---
EXAMINATION TYPE: US transvaginal DATE OF EXAM: 12/13/2019 COMPARISON: NONE CLINICAL HISTORY: LLQ pain, hx ectopic. left pelvic pain TECHNIQUE: Transvaginal (TV). Date of LMP: 12/07/19 EXAM MEASUREMENTS: Uterus: 8.0 x 4.6 x 4.8 cm Endometrial Stripe: 0.9 cm Right Ovary: 3.5 x 1.5 x 1.7 cm Left Ovary: 2.3 x 1.3 x 1.4 cm 1. Uterus: Anteverted heterogeneous 2. Endometrium: appears wnl 3. Right Ovary: follicles noted 4. Left Ovary: limited evaluation due to location (posterior to uterus), follicles noted Spectral, color and waveform doppler imaging shows good arterial and venous flow within the ovaries ; there is no evidence for ovarian torsion. 5. Bilateral Adnexa: appears wnl 6. Posterior cul-de-sac: wnl IMPRESSION: Normal uterus and endometrium. No adnexal mass. No evidence of ovarian torsion. No free fluid.
--- NOTE | 2019-12-13 00:40 | ED ---
Abdominal Pain HPI - General Chief Complaint: Abdominal Pain Stated Complaint: Lower Abd Pain Time Seen by Provider: 12/12/19 23:20 Source: patient Mode of arrival: ambulatory Limitations: no limitations - History of Present Illness Initial Comments: The patient is a 24-year-old female who presents emergency department with reported left lower quadrant pain. She states that it started earlier today. She describes it as a cramping sensation without provocative factors. States it's been constant. She took some Motrin at home without improvement in her symptoms. Denies dysuria, hematuria with voiding. Denies diarrhea, melenic stools, hematochezia or constipation. Started her menstrual cycle on Thursday and states she only had pain for 3 days. States this is abnormal for her. Normally has 7 day menstrual cycles. Patient did have a tubal ligation in 2018 also reports a history of ectopic when she was 18 years old. Does report t hat her symptoms feel similar. At that time she took methotrexate did not require surgery. States she's been one other time and has one child at home. She took a few test at home which were negative. Denies any fevers or chills. No nausea or vomiting. States that she had a tummy tuck last year. There are no other alleviating, precipitating factors - Related Data Home Medications Medication Instructions Recorded Confirmed Cephalexin [Keflex] 500 mg PO TID 03/30/19 03/30/19 Diazepam 10 mg PO Q8H PRN 03/30/19 03/30/19 Montelukast [Singulair] 10 mg PO DAILY 03/30/19 03/30/19 Allergies Allergy/AdvReac Type Severity Reaction Status Date / Time acetaminophen [From [place]] Allergy Itching Verified 12/12/19 23:21 hydrocodone [From [place]] Allergy Itching Verified 12/12/19 23:21 Review of Systems ROS Statement: Those systems with pertinent positive or pertinent negative responses have been documented in the HPI. ROS Other: All systems not noted in ROS Statement are negative. Past Medical History Past Medical History: No Reported History History of Any Multi-Drug Resistant Organisms: None Reported Past Surgical History: Section, Cholecystectomy, Tubal Ligation Additional Past Surgical History / Comment(s): "Mommy makeover" Past Anesthesia/Blood Transfusion Reactions: No Reported Reaction Past Psychological History: No Psychological Hx Reported Smoking Status: Current every day smoker Past Alcohol Use History: Rare Past Drug Use History: None Reported - Past Family History Father History Unknown: Yes Family Medical History: No Reported History General Exam Limitations: no limitations General appearance: alert, in no apparent distress Head exam: Present: atraumatic, normocephalic, normal inspection Eye exam: Present: normal appearance, PERRL, EOMI. Absent: scleral icterus, conjunctival injection, periorbital swelling ENT exam: Present: normal exam, mucous membranes moist Neck exam: Present: normal inspection. Absent: tenderness, meningismus, lymphadenopathy Respiratory exam: Present: normal lung sounds bilaterally. Absent: respiratory distress, wheezes, rales, rhonchi, stridor Cardiovascular Exam: Present: regular rate, normal rhythm, normal heart sounds. Absent: systolic murmur, diastolic murmur, rubs, gallop, clicks GI/Abdominal exam: Present: soft, tenderness (Left lower quadrant tenderness), normal bowel sounds. Absent: distended, guarding, rebound, rigid Extremities exam: Present: normal inspection, full ROM, normal capillary refill. Absent: tenderness, pedal edema, joint swelling, calf tenderness Back exam: Present: normal inspection Neurological exam: Present: alert, oriented X3, CN II-XII intact Psychiatric exam: Present: normal affect, normal mood Skin exam: Present: warm, dry, intact, normal color. Absent: rash Course Vital Signs 12/12/19 12/13/19 23:18 01:22 Temperature 99.2 F Pulse Rate 94 85 Respiratory 18 16 Rate Blood Pressure 155/95 132/85 O2 Sat by Pulse 97 98 Oximetry Medical Decision Making - Medical Decision Making Upon arrival the patient was placed into room 5. A thorough history and physical exam was performed. Laboratory studies were conducted. An ultrasound was performed. Patient was given 15 mg Toradol IV. Laboratory studies are unremarkable. Urinalysis is negative for hCG. UA is clear. Transvaginal ultrasound demonstrates normal uterus and endometrium. No adnexal mass. No evidence of ovarian torsion. No free fluid. I discussed the diagnosis and differential with the patient. She is requesting abdominal CT for continued pain. Studies performed and demonstrates no signs of acute abdomen and pelvis. Nonobstructing right renal calculi. Small umbilical hernia containing fat. I discussed these results the patient. I instructed the patient to continue taking the MiraLAX daily to ensure small bowel movements. Return to the emergency from for any new or worsening symptoms. Follow up with her primary care doctor to 4 days. Patient was in agreement treatment plan is discharge home in stable condition - Lab Data Result diagrams: 12/12/19 23:39 12/12/19 23:39 Lab Results 12/12/19 12/12/19 12/12/19 Range/Units 23:26 23:26 23:39 WBC 10.0 (3.8-10.6) k/uL RBC 4.91 (3.80-5.40) m/uL Hgb 13.3 (11.4-16.0) gm/dL Hct 39.4 (34.0-46.0) % MCV 80.3 (80.0-100.0) fL MCH 27.1 (25.0-35.0) pg MCHC 33.8 (31.0-37.0) g/dL RDW 13.6 (11.5-15.5) % Plt Count 330 (150-450) k/uL Neutrophils % 61 % Lymphocytes % 32 % Monocytes % 3 % Eosinophils % 2 % Basophils % 0 % Neutrophils # 6.1 (1.3-7.7) k/uL Lymphocytes # 3.2 (1.0-4.8) k/uL Monocytes # 0.3 (0-1.0) k/uL Eosinophils # 0.2 (0-0.7) k/uL Basophils # 0.0 (0-0.2) k/uL Sodium (137-145) mmol/L Potassium (3.5-5.1) mmol/L Chloride (98-107) mmol/L Carbon Dioxide (22-30) mmol/L Anion Gap mmol/L BUN (7-17) mg/dL Creatinine (0.52-1.04) mg/dL Est GFR (CKD-EPI)AfAm (>60 ml/min/1.73 sqM) Est GFR (CKD-EPI)NonAf (>60 ml/min/1.73 sqM) Glucose (74-99) mg/dL Plasma Lactic Acid Richard (0.7-2.0) mmol/L Calcium (8.4-10.2) mg/dL Total Bilirubin (0.2-1.3) mg/dL AST (14-36) U/L ALT (4-34) U/L Alkaline Phosphatase (38-126) U/L Total Protein (6.3-8.2) g/dL Albumin (3.5-5.0) g/dL Lipase (23-300) U/L Urine Color Yellow Urine Appearance Clear (Clear) Urine pH 6.0 (5.0-8.0) Ur Specific [employer] 1.028 (1.001-1.035) Urine Protein Negative (Negative) Urine Glucose (UA) Negative (Negative) Urine Ketones Negative (Negative) Urine Blood Negative (Negative) Urine Nitrite Negative (Negative) Urine Bilirubin Negative (Negative) Urine Urobilinogen 2.0 (<2.0) mg/dL Ur Leukocyte Esterase Negative (Negative) Urine HCG, Qual Not Detected (Not Detectd) 12/12/19 12/12/19 Range/Units 23:39 23:39 WBC (3.8-10.6) k/uL RBC (3.80-5.40) m/uL Hgb (11.4-16.0) gm/dL Hct (34.0-46.0) % MCV (80.0-100.0) fL MCH (25.0-35.0) pg MCHC (31.0-37.0) g/dL RDW (11.5-15.5) % Plt Count (150-450) k/uL Neutrophils % % Lymphocytes % % Monocytes % % Eosinophils % % Basophils % % Neutrophils # (1.3-7.7) k/uL Lymphocytes # (1.0-4.8) k/uL Monocytes # (0-1.0) k/uL Eosinophils # (0-0.7) k/uL Basophils # (0-0.2) k/uL Sodium 138 (137-145) mmol/L Potassium 4.2 (3.5-5.1) mmol/L Chloride 103 (98-107) mmol/L Carbon Dioxide 27 (22-30) mmol/L Anion Gap 8 mmol/L BUN 12 (7-17) mg/dL Creatinine 0.63 (0.52-1.04) mg/dL Est GFR (CKD-EPI)AfAm >90 (>60 ml/min/1.73 sqM) Est GFR (CKD-EPI)NonAf >90 (>60 ml/min/1.73 sqM) Glucose 93 (74-99) mg/dL Plasma Lactic Acid Richard 1.3 (0.7-2.0) mmol/L Calcium 9.6 (8.4-10.2) mg/dL Total Bilirubin 0.4 (0.2-1.3) mg/dL AST 19 (14-36) U/L ALT 16 (4-34) U/L Alkaline Phosphatase 101 (38-126) U/L Total Protein 7.9 (6.3-8.2) g/dL Albumin 4.7 (3.5-5.0) g/dL Lipase 98 (23-300) U/L Urine Color Urine Appearance (Clear) Urine pH (5.0-8.0) Ur Specific [employer] (1.001-1.035) Urine Protein (Negative) Urine Glucose (UA) (Negative) Urine Ketones (Negative) Urine Blood (Negative) Urine Nitrite (Negative) Urine Bilirubin (Negative) Urine Urobilinogen (<2.0) mg/dL Ur Leukocyte Esterase (Negative) Urine HCG, Qual (Not Detectd) Disposition Clinical Impression: Abdominal pain Disposition: HOME SELF-CARE Condition: Stable Instructions (If sedation given, give patient instructions): Abdominal Pain (ED) Additional Instructions: Please follow-up with your primary care doctor in 2-4 days. Return to the emergency department for any new or worsening symptoms Is patient prescribed a controlled substance at d/c from ED?: No Referrals: None,Stated [Primary Care Provider] - 1-2 days Time of Disposition: 01:15
--- NOTE | 2019-12-13 00:58 | CT ---
EXAMINATION TYPE: CT abdomen pelvis w con DATE OF EXAM: 12/13/2019 COMPARISON: None HISTORY: LLQ Abd Pain CT DLP: 1034.80 mGycm Automated exposure control for dose reduction was used. CONTRAST: Performed with IV Contrast, patient injected with 100 mL of Isovue 300. Lung bases are clear. There is no pleural effusion. Heart appears normal. Liver spleen stomach pancre as appear normal. Bile ducts are not dilated. There are clips from cholecystectomy. There is no adrenal mass. Kidneys show satisfactory contrast opacification. There is no hydronephrosi s. Ureters are not dilated. There is 2 mm calculus lower pole right kidney. There is no retroperitone al adenopathy. There are clips apparently from tubal ligation. There is no inguinal hernia. There is no free fluid in the pelvis. Appendix appears normal. There is no mesenteric edema. There is no ascit es or free air. There is no sign of a bowel obstruction. Lumbar vertebra have normal spacing and alignment. Posterior elements are intact. Bony pelvis is inta ct. There is small umbilical hernia that contains fat. IMPRESSION: No sign of acute abdomen and pelvis. Nonobstructing right renal calculus. Small umbilical hernia cont ains fat.
[2019-12-13 01:23] VITALS: BP 132/85; PULSE 85; RESP 16
== END 2019-12-13 01:23 | disposition home or self-care (01) ==
LOC: EC 23:13
DX: R10.32 Left lower quadrant pain (principal); K42.9 Umbilical hernia without obstruction or gangrene; N20.0 Calculus of kidney; F17.200 Nicotine dependence, unspecified, uncomplicated; Z79.899 Other long term (current) drug therapy; Z88.5 Allergy status to narcotic agent; Z88.6 Allergy status to analgesic agent; Z90.49 Acquired absence of other specified parts of digestive tract
CPT/HCPCS: 36415; 80053; 83605; 83690; 85025; 81003; 81025; 93975; 76830; 74177; 99284; 96374; J1885; Q9967

== ENCOUNTER 2019-12-25 21:06 | Emergency (ER) | payer BC ==
[2019-12-25] MEDS ORDERED: ACETAMINOPHEN TAB 500 MG TAB PO STA (21:14)
[2019-12-25] MEDS ORDERED: metroNIDAZOLE 500 MG TAB PO STA (21:34)
[2019-12-25] MEDS ORDERED: AZITHROMYCIN 500 MG TAB PO STA (21:34)
[2019-12-25] MEDS ORDERED: cefTRIAXone 1,000 MG VIAL (IM USE) IM STA (21:34)
[2019-12-25 22:01] VITALS: RESP 16
[2019-12-25 22:10] LABS: Appearance,Urine Clear (Clear); Bacteria,Urine Rare /hpf; Bilirubin,Urine Negative (Negative); Blood,Urine Negative (Negative); Color,Urine Yellow; Glucose,Urine (UA) Negative (Negative); Ketones,Urine Negative (Negative); Leukocyte Esterase,Urine Small (Negative); Mucus,Urine Occasional /hpf; Nitrite,Urine Negative (Negative); Protein,Urine Trace (Negative); RBC,Urine 4 /hpf (0-5); Specific Gravity,Urine 1.026 (1.001-1.035); Squamous Epithelial Cell,Urine 2 /hpf (0-4); Urobilinogen,Urine <2.0 mg/dL (<2.0); WBC,Urine 11 /hpf (0-5)
[2019-12-25 22:12] VITALS: BP 141/88; PULSE 116; TEMP 100.5
--- NOTE | 2019-12-25 22:38 | ED ---
Female Urogenital HPI - General Chief complaint: Urogenital Stated complaint: Burn Time Seen by Provider: 12/25/19 21:13 Source: patient, RN notes reviewed, old records reviewed Mode of arrival: ambulatory Limitations: no limitations - History of Present Illness Initial comments: Patient is a 4-year-old female presents to [facility] today with dysuria for 3 days, complaining of concern for STDs. She is also found to have a fever 102. She denies any lower abdominal pain, flank pain. She states that she was seen at [facility], and was given prescription for Pyridium but no antibiotic. Patient states that she's had no chance of . She denies any nausea or vomiting. She's had normal bowel movements. She states that she try to use a feminine wash over her labia and it seemed to cause more irritation on her skin. - Related Data Home Medications Medication Instructions Recorded Confirmed Ibuprofen [Motrin Ib] 400 mg PO Q6H PRN 12/25/19 12/25/19 Vitamin C(Unknown Dose) 1 tab PO DAILY 12/25/19 12/25/19 Vitamin D3(Unknown Dose) 1 tab PO DAILY 12/25/19 12/25/19 Previous Rx's Medication Instructions Recorded Doxycycline [Vibramycin] 100 mg PO BID #28 cap 12/25/19 Fluconazole [Diflucan] 150 mg PO ONCE #3 tab 12/25/19 Allergies Allergy/AdvReac Type Severity Reaction Status Date / Time hydrocodone [From [place]] Allergy Itching Verified 12/25/19 22:00 Review of Systems ROS Statement: Those systems with pertinent positive or pertinent negative responses have been documented in the HPI. ROS Other: All systems not noted in ROS Statement are negative. Past Medical History Past Medical History: No Reported History History of Any Multi-Drug Resistant Organisms: None Reported Past Surgical History: Section, Cholecystectomy, Tubal Ligation Additional Past Surgical History / Comment(s): "Mommy makeover" Past Anesthesia/Blood Transfusion Reactions: No Reported Reaction Past Psychological History: No Psychological Hx Reported Smoking Status: Current every day smoker Past Alcohol Use History: Rare Past Drug Use History: None Reported - Past Family History Father History Unknown: Yes Family Medical History: No Reported History General Exam - General Exam Comments Initial Comments: 24-year-old female. Alert and oriented. No distress. General: Well appearing, well nourished, in no distress. Oriented x 3, normal mood and affect . Ambulating without difficulty. Skin: Good turgor, no rash, unusual bruising or prominent lesions Hair: Normal texture and distribution. HEENT: Head: Normocephalic, atraumatic, no visible or palpable masses, depressi ons, or scaring. Mouth: Mucous membranes moist, no mucosal lesions. Teeth/Gums: No obvious caries or periodontal disease. No gingival inflammation or significant resorption. Pharynx: Mucosa non-inflamed, no tonsillar hypertrophy or exudate Neck: Supple, without lesions, bruits, or adenopathy, thyroid non-enlarged and non-tender Heart: No cardiomegaly or thrills; regular rate and rhythm, no murmur or gallop Lungs: Clear to auscultation and percussion Abdomen: Bowel sounds normal, no tenderness, organomegaly, masses, or hernia Back: Spine normal without deformity or tenderness, no CVA tenderness Extremities: No amputations or deformities, cyanosis, edema or varicosities, peripheral pulses intact Musculoskeletal: Normal gait and station. No misalignment, asymmetry, crepitation, defects, tenderness, masses, effusions, decreased range of motion, instability, atrophy or abnormal strength or tone in the head, neck, spine, ribs, pelvis or extremities. Neurologic: CN 2-12 normal. Sensation to pain, touch, and proprioception normal. DTRs normal in upper and lower extremities. No pathologic reflexes. Psychiatric: Oriented X3, intact recent and remote memory, judgment and insight, normal mood and affect. Pelvic: Vagina and cervix without lesions or discharge. Uterus and adnexa/parametria nontender without masses. No cervical motion tenderness. Limitations: no limitations Course Vital Signs 12/25/19 12/25/19 12/25/19 21:09 22:00 22:11 Temperature 102.1 F H 100.5 F H Pulse Rate 127 H 116 H Respiratory 18 16 16 Rate Blood Pressure 131/84 141/88 O2 Sat by Pulse 98 97 Oximetry Medical Decision Making - Medical Decision Making This patient's a pleasant 24-year-old female presents presents for concern for dysuria, possible STDs. Pelvic exam showed minimal discharge. She had no adnexal tenderness. No abdominal tenderness or CVA tenderness. She is also found to have a fever. She is given Tylenol tolerated fluids emergency department. Patient denies any abdominal pain at this time just complains of mild dysuria. Discussed treatment for UTI and STDs. She is given IM Rocephin, by mouth Flagyl and azithromycin and emergency department. Trichomonas test is negative. Chlamydia and gonorrhea testing are pending. Patient will be treated with doxycycline at this time for concern for UTI as well as PID. Discussed with intercourse for 2 weeks. Discussed following up with PCP. Discussed return parameters including further fevers or vomiting. - Lab Data Lab Results 12/25/19 12/25/19 12/25/19 Range/Units 21:20 21:20 21:20 Urine Color Yellow Urine Appearance Clear (Clear) Urine pH 6.0 (5.0-8.0) Ur Specific [place] 1.026 (1.001-1.035) Urine Protein Trace H (Negative) Urine Glucose (UA) Negative (Negative) Urine Ketones Negative (Negative) Urine Blood Negative (Negative) Urine Nitrite Negative (Negative) Urine Bilirubin Negative (Negative) Urine Urobilinogen <2.0 (<2.0) mg/dL Ur Leukocyte Esterase Small H (Negative) Urine RBC 4 (0-5) /hpf Urine WBC 11 H (0-5) /hpf Ur Squamous Epith Cells 2 (0-4) /hpf Urine Bacteria Rare H (None) /hpf Urine Mucus Occasional H (None) /hpf Urine HCG, Qual Not Detected (Not Detectd) Trichomonas Ag (Rapid) Negative (Negative) Disposition Clinical Impression: Dysuria, Concern about STD in female without diagnosis Disposition: HOME SELF-CARE Condition: Good Instructions (If sedation given, give patient instructions): Urinary Tract Infection in Women (ED) Additional Instructions: Patient should've no intercourse for the next 2 weeks. Take the antibiotic as prescribed, once finished patient can use diflucan for yeast infection. Follow- up with your primary care doctor. Return to the emergency department if any alarming signs or symptoms occur. Motrin and Tylenol for pain. Prescriptions: Fluconazole [Diflucan] 150 mg PO ONCE #3 tab Doxycycline [Vibramycin] 100 mg PO BID #28 cap Is patient prescribed a controlled substance at d/c from ED?: No Referrals: None,Stated [Primary Care Provider] - 1-2 days Hernandez Curry [STAFF PHYSICIAN] - 1-2 days Time of Disposition: 22:34
[2019-12-27 16:14] LABS: C. trachomatis,PCR Negative (Neg,Equiv); Chlamydia trachomatis Source Cervix; N. gonorrhoeae,PCR Negative (Neg,Equiv); Neisseria Source Cervix
== END 2019-12-25 22:48 | disposition home or self-care (01) ==
LOC: EC 21:06
DX: R30.0 Dysuria (principal); R50.9 Fever, unspecified; Z71.1 Person with feared health complaint in whom no diagnosis is made; F17.200 Nicotine dependence, unspecified, uncomplicated; Z88.5 Allergy status to narcotic agent
CPT/HCPCS: 81001; 81025; 87808; 87491; 87591; 87070; 87086; 99283; 96372; J0696

== ENCOUNTER 2019-12-27 12:24 | Emergency (ER) | payer BC ==
[2019-12-27] MEDS ORDERED: valACYclovir 500 MG TAB PO STA (12:44)
[2019-12-27] MEDS ORDERED: ACET/COD 300 MG/30 MG STARTER PACK 6 TAB BTL PO STA (12:45)
--- NOTE | 2019-12-27 12:52 | ED ---
Female Urogenital HPI - General Chief complaint: Urogenital Stated complaint: Recheck, chem burn Time Seen by Provider: 12/27/19 12:30 Source: patient, RN notes reviewed, old records reviewed Mode of arrival: ambulatory Limitations: no limitations - History of Present Illness Initial comments: Patient is a 4-year-old female who presents emergency department today with vaginal irritation, and noticed sores developing over the past day. Patient was seen in emergency department for dysuria and fever. Patient's urinalysis that time showed some minor white blood cells. She did report she was a concern for STDs and was treated for gonorrhea and chlamydia of Rocephin and azithromycin. She reports that she was called and her chlamydia and gonorrhea testing are negative. She still complains of some irritation and sore over her skin. Patient states that she's had no further fevers. Last Menstrual Period: 12/04/19 - Related Data Home Medications Medication Instructions Recorded Confirmed Ibuprofen [Motrin Ib] 400 mg PO Q6H PRN 12/25/19 12/25/19 Vitamin C(Unknown Dose) 1 tab PO DAILY 12/25/19 12/25/19 Vitamin D3(Unknown Dose) 1 tab PO DAILY 12/25/19 12/25/19 Previous Rx's Medication Instructions Recorded Doxycycline [Vibramycin] 100 mg PO BID #28 cap 12/25/19 Fluconazole [Diflucan] 150 mg PO ONCE #3 tab 12/25/19 valACYclovir HCL [Valtrex] 1,000 mg PO Q12HR #14 tab 12/27/19 Allergies Allergy/AdvReac Type Severity Reaction Status Date / Time hydrocodone [From [place]] Allergy Itching Verified 12/25/19 22:00 Review of Systems ROS Statement: Those systems with pertinent positive or pertinent negative responses have been documented in the HPI. ROS Other: All systems not noted in ROS Statement are negative. Past Medical History Past Medical History: No Reported History History of Any Multi-Drug Resistant Organisms: None Reported Past Surgical History: Section, Cholecystectomy, Tubal Ligation Additional Past Surgical History / Comment(s): "Mommy makeover" Past Anesthesia/Blood Transfusion Reactions: No Reported Reaction Past Psychological History: No Psychological Hx Reported Smoking Status: Current every day smoker Past Alcohol Use History: Rare Past Drug Use History: None Reported - Past Family History Father History Unknown: Yes Family Medical History: No Reported History General Exam Limitations: no limitations General appearance: alert, in no apparent distress Head exam: Present: atraumatic, normocephalic, normal inspection Eye exam: Present: normal appearance, PERRL, EOMI. Absent: scleral icterus, conjunctival injection, periorbital swelling ENT exam: Present: normal exam Neck exam: Present: normal inspection. Absent: tenderness, meningismus, lymphadenopathy Respiratory exam: Present: normal lung sounds bilaterally. Absent: respiratory distress, wheezes, rales, rhonchi, stridor Cardiovascular Exam: Present: regular rate GI/Abdominal exam: Present: soft, normal bowel sounds. Absent: distended, tenderness, guarding, rebound, rigid External exam: Present: lesions (multiple erythematous lesion on R labia, consistent with herpes simplex). Absent: normal external exam Extremities exam: Present: normal inspection, full ROM, normal capillary refill. Absent: tenderness, pedal edema, joint swelling, calf tenderness Back exam: Present: normal inspection Neurological exam: Present: alert, oriented X3, CN II-XII intact Psychiatric exam: Present: normal affect, normal mood Skin exam: Present: warm, dry, intact, normal color. Absent: rash Course Vital Signs 12/27/19 12:27 Temperature 99.2 F Pulse Rate 99 Respiratory 17 Rate Blood Pressure 132/85 O2 Sat by Pulse 98 Oximetry Medical Decision Making - Medical Decision Making 7-year-old female presented today for concern for vaginal irritation and sores and burning sensation. Patient has 3 erythematous lesions over the right labia concern for herpes Symplex infection. These were not present on the patient's evaluation 2 days ago. At that time she was treated for all pressure STDs. Her urine culture is negative at this time. Discussed discontinuing antibiotic and Patient can be started on Valtrex. Discussed return parameters. Disposition Clinical Impression: Herpes genitalia Disposition: HOME SELF-CARE Condition: Good Instructions (If sedation given, give patient instructions): Genital Herpes Simplex (ED) Additional Instructions: Patient advised to keep the area clean. Avoid putting any topical products of the area. Avoid touching eyes and face, wash hands. Patient is still contagious until these lesions have healed and crusted over. Take medication as prescribed. Patient also avoid shaving the area. Prescriptions: valACYclovir HCL [Valtrex] 1,000 mg PO Q12HR #14 tab Is patient prescribed a controlled substance at d/c from ED?: No Referrals: None,Stated [Primary Care Provider] - 1-2 days Hernandez Curry [STAFF PHYSICIAN] - 1-2 days Time of Disposition: 12:50
[2019-12-27 13:21] LABS: Appearance,Urine Clear (Clear); Bacteria,Urine Rare /hpf; Bilirubin,Urine Negative (Negative); Blood,Urine Trace (Negative); Calcium Oxalate Crystals,Urine Few /hpf; Color,Urine Yellow; Glucose,Urine (UA) Negative (Negative); Ketones,Urine Negative (Negative); Leukocyte Esterase,Urine Trace (Negative); Mucus,Urine Few /hpf; Nitrite,Urine Negative (Negative); Protein,Urine Trace (Negative); RBC,Urine 27 /hpf (0-5); Specific Gravity,Urine 1.026 (1.001-1.035); Squamous Epithelial Cell,Urine 1 /hpf (0-4); Urobilinogen,Urine <2.0 mg/dL (<2.0); WBC,Urine 4 /hpf (0-5)
[2019-12-27 13:40] VITALS: BP 121/78; PULSE 70; RESP 18; TEMP 98.9
== END 2019-12-27 13:40 | disposition home or self-care (01) ==
LOC: EC 12:24
DX: B00.9 Herpesviral infection, unspecified (principal); F17.200 Nicotine dependence, unspecified, uncomplicated; Z88.5 Allergy status to narcotic agent; Z98.51 Tubal ligation status
CPT/HCPCS: 81001; 99284

== ENCOUNTER 2022-08-03 20:51 | Emergency (ER) | payer BC, OTHER ==
[2022-08-03 21:24] VITALS: BP 134/85; RESP 16; TEMP 98.8
--- NOTE | 2022-08-03 21:39 | ED ---
URI HPI - General Chief Complaint: Upper Respiratory Infection Stated Complaint: JOSE,Chest Pain Time Seen by Provider: 08/03/22 21:32 Source: patient, RN notes reviewed Mode of arrival: ambulatory Limitations: no limitations - History of Present Illness Initial Comments: Patient is a 27-year-old female presenting to the emergency room with cough and congestion. She reports that she has been having cough and congestion ongoing for approximately 2 weeks with worsening of symptoms over the last 3 days. She reports some nausea and from a likely, once as well. She is does not believe that she has had any fevers but does note some occasional chills. She denies any known exposure to COVID or influenza. She denies any chest pain, abdominal pain, diarrhea, lethargy, altered mental status, headache, or dizziness. She does smoke marijuana and utilize nicotine E- cigarettes often. She has no significant past medical history and does not take any medications on a regular basis. - Related Data Home Medications Medication Instructions Recorded Confirmed Ibuprofen [Motrin Ib] 400 mg PO Q6H PRN 12/25/19 12/25/19 Vitamin C(Unknown Dose) 1 tab PO DAILY 12/25/19 12/25/19 Vitamin D3(Unknown Dose) 1 tab PO DAILY 12/25/19 12/25/19 Previous Rx's Medication Instructions Recorded Doxycycline [Vibramycin] 100 mg PO BID #28 cap 12/25/19 Fluconazole [Diflucan] 150 mg PO ONCE #3 tab 12/25/19 valACYclovir HCL [Valtrex] 1,000 mg PO Q12HR #14 tab 12/27/19 Albuterol Inhaler [Ventolin Hfa 1 - 2 puff INHALATION Q6H PRN 30 08/03/22 Inhaler] Days #1 each Azithromycin [Zithromax Z Pack] 1 tab PO DIRECTED #6 tab 08/03/22 methylPREDNISolone Dose Pack 4 mg PO DIRECTED #21 tab 08/03/22 [Medrol Dose Pack] Allergies Allergy/AdvReac Type Severity Reaction Status Date / Time hydrocodone [From [place]] Allergy Itching Verified 08/03/22 21:21 Review of Systems ROS Statement: Those systems with pertinent positive or pertinent negative responses have been documented in the HPI. ROS Other: All systems not noted in ROS Statement are negative. Past Medical History Past Medical History: No Reported History History of Any Multi-Drug Resistant Organisms: None Reported Past Surgical History: Section, Cholecystectomy, Tubal Ligation Additional Past Surgical History / Comment(s): "Mommy makeover" Past Anesthesia/Blood Transfusion Reactions: No Reported Reaction Past Psychological History: No Psychological Hx Reported Smoking Status: Current every day smoker Past Alcohol Use History: Rare Past Drug Use History: Marijuana - Past Family History Father History Unknown: Yes Family Medical History: No Reported History General Exam Limitations: no limitations General appearance: alert, in no apparent distress Head exam: Present: atraumatic, normocephalic, normal inspection Eye exam: Present: normal appearance, PERRL, EOMI. Absent: scleral icterus, conjunctival injection, periorbital swelling ENT exam: Present: normal exam, mucous membranes moist Neck exam: Present: normal inspection, full ROM Respiratory exam: Present: wheezes (Expiratory). Absent: respiratory distress, rales, rhonchi, stridor Cardiovascular Exam: Present: regular rate, normal rhythm, normal heart sounds. Absent: systolic murmur, diastolic murmur, rubs, gallop, clicks GI/Abdominal exam: Present: soft, normal bowel sounds. Absent: distended, tenderness, guarding, rebound, rigid Rectal exam: Present: deferred Extremities exam: Present: normal inspection. Absent: pedal edema, joint swelling Back exam: Present: normal inspection Neurological exam: Present: alert, oriented X3, CN II-XII intact Psychiatric exam: Present: normal affect, normal mood Skin exam: Present: warm, dry, intact, normal color. Absent: rash Course Vital Signs 08/03/22 08/03/22 08/03/22 21:21 22:25 22:31 Temperature 98.8 F Pulse Rate 98 79 85 Respiratory 16 Rate Blood Pressure 134/85 O2 Sat by Pulse 96 Oximetry Medical Decision Making - Medical Decision Making 27-year-old female presenting to the emergency room with complaints of cough and congestion ongoing for approximately 2 weeks with worsening symptoms for the last 3 days. No indication for supplemental oxygen need. Expiratory wheeze with stable oxygenation without tachypnea. Will obtain COVID and influenza swabs along with chest x-ray. No indication for antipyretics or antibiotic therapy at this time. Covid Negative. Will order one-time nebulized treatment to help with wheeze cough and congestion. No indication severe wheeze or respiratory distress indicating need for IV steroids. Awaiting chest x-ray. No indication for other laboratory studies at this time. Wheeze improved with nebulized treatment. Chest x-ray read by me showing no consolidation or infiltrate. Given duration of symptoms and improvement of wheeze from nebulized treatment will treat bronchitis with oral steroids antibiotics and provide a MDI and albuterol inhaler. Smoking cessation encouraged. Will discharge home in stable condition with follow-up with her primary care provider. Case discussed with Dr. Medina. - Lab Data Lab Results 08/03/22 08/03/22 Range/Units 21:30 21:30 Coronavirus (PCR) Not Detected (Not Detectd) Influenza Type A RNA Not Detected (Not Detectd) Influenza Type B (PCR) Not Detected (Not Detectd) - Radiology Data Radiology results: report reviewed, image reviewed Chest x-ray two-view impression per radiologist heart and mediastinum are normal. Lungs are clear. Normal chest. Disposition Clinical Impression: Upper respiratory tract infection, Bronchitis Disposition: HOME SELF-CARE Condition: Stable Instructions (If sedation given, give patient instructions): Upper Respiratory Infection (ED) Additional Instructions: Please complete antibiotic and steroid course as prescribed. Utilize inhaler as needed for shortness of breath, cough and wheezing. Cessation of use of weight and marijuana recommended. Please follow-up with your primary care provider. Please return to the Emergency Department if symptoms worsen or any other concerns. Prescriptions: methylPREDNISolone Dose Pack [Medrol Dose Pack] 4 mg PO DIRECTED #21 tab Albuterol Inhaler [Ventolin Hfa Inhaler] 1 - 2 puff INHALATION Q6H PRN 30 Days #1 each PRN Reason: Shortness Of Breath Azithromycin [Zithromax Z Pack] 1 tab PO DIRECTED #6 tab Is patient prescribed a controlled substance at d/c from ED?: No Referrals: None,Stated [Primary Care Provider] - 1-2 days Time of Disposition: 22:46
--- NOTE | 2022-08-03 22:05 | XR ---
EXAMINATION TYPE: XR chest 2V DATE OF EXAM: 08/03/2022 COMPARISON: NONE HISTORY: Cough TECHNIQUE: 2 views FINDINGS: Heart and mediastinum are normal. Lungs are clear. Diaphragm is normal. Bony thorax appears normal. IMPRESSION: Normal chest.
[2022-08-03] MEDS ORDERED: ALBUTEROL NEBULIZED 2.5 MG/3 ML INHALATION STA (22:06)
[2022-08-03 22:32] VITALS: PULSE 85
== END 2022-08-03 22:55 | disposition home or self-care (01) ==
LOC: EC 20:51
DX: J06.9 Acute upper respiratory infection, unspecified (principal); F17.200 Nicotine dependence, unspecified, uncomplicated; F12.90 Cannabis use, unspecified, uncomplicated; Z90.49 Acquired absence of other specified parts of digestive tract; Z20.822 Contact with and (suspected) exposure to COVID-19; Z88.5 Allergy status to narcotic agent
CPT/HCPCS: 71046; 87502; 87635; 94640; 99285

== ENCOUNTER 2023-01-21 08:55 | Emergency (ER) | payer OTHER ==
[2023-01-21] MEDS ORDERED: KETOROLAC 15 MG/ML 1 ML VIAL IM STA (09:15)
[2023-01-21] MEDS ORDERED: diphenhydrAMINE 50 MG/ML 1 ML VIAL IM STA (09:15)
--- NOTE | 2023-01-21 09:19 | ED ---
General Adult HPI - General Chief complaint: Headache Stated complaint: headache Time Seen by Provider: 01/21/23 09:02 Source: patient, family, RN notes reviewed Mode of arrival: ambulatory Limitations: no limitations - History of Present Illness Initial comments: Patient is a pleasant 27-year-old female presenting to the emergency department with concerns for discomfort behind her right ear. Symptoms have been present for several weeks. Patient previously had TM rupture. Patient also was started on penicillin for that as well as dental infection. Patient had follow-up dental extraction. Patient is having discomfort still since that time. Discomfort is mostly hiding the right ear, in the mastoid region. Patient states discomfort does radiate up to the top of her head. Patient has mild photophobia. Patient has some diffuse paresthesias, bilateral. No weakness. No confusion or speech problems. - Related Data Home Medications Medication Instructions Recorded Confirmed Ibuprofen [Motrin Ib] 400 mg PO Q6H PRN 12/25/19 12/25/19 Vitamin C(Unknown Dose) 1 tab PO DAILY 12/25/19 12/25/19 Vitamin D3(Unknown Dose) 1 tab PO DAILY 12/25/19 12/25/19 Previous Rx's Medication Instructions Recorded Doxycycline [Vibramycin] 100 mg PO BID #28 cap 12/25/19 Fluconazole [Diflucan] 150 mg PO ONCE #3 tab 12/25/19 valACYclovir HCL [Valtrex] 1,000 mg PO Q12HR #14 tab 12/27/19 Albuterol Inhaler [Ventolin Hfa 1 - 2 puff INHALATION Q6H PRN 30 08/03/22 Inhaler] Days #1 each Azithromycin [Zithromax Z Pack] 1 tab PO DIRECTED #6 tab 08/03/22 methylPREDNISolone Dose Pack 4 mg PO DIRECTED #21 tab 08/03/22 [Medrol Dose Pack] Allergies Allergy/AdvReac Type Severity Reaction Status Date / Time hydrocodone [From [place]] Allergy Itching Verified 01/21/23 09:01 Review of Systems ROS Statement: Those systems with pertinent positive or pertinent negative responses have been documented in the HPI. ROS Other: All systems not noted in ROS Statement are negative. Constitutional: Denies: fever Eyes: Denies: eye pain ENT: Reports: as per HPI Respiratory: Denies: cough Cardiovascular: Denies: chest pain Endocrine: Denies: fatigue Neurological: Reports: as per HPI, headache. Denies: weakness, confusion Past Medical History Past Medical History: Asthma History of Any Multi-Drug Resistant Organisms: None Reported Past Surgical History: Section, Cholecystectomy, Tubal Ligation Additional Past Surgical History / Comment(s): "Mommy makeover" Past Anesthesia/Blood Transfusion Reactions: No Reported Reaction Past Psychological History: No Psychological Hx Reported Smoking Status: Current every day smoker Past Alcohol Use History: Rare Past Drug Use History: Marijuana - Past Family History Father History Unknown: Yes Family Medical History: No Reported History General Exam Limitations: no limitations General appearance: alert, in no apparent distress Head exam: Present: atraumatic, normocephalic Eye exam: Present: normal appearance, PERRL, EOMI ENT exam: Present: TM's normal bilaterally (Except for Minimal fluid behind right TM), other (Right upper posterior molar region with mild subcutaneous white appearance. This does appear somewhat hard, possible retained tooth fragment. There is tenderness. Mild fluid behind right TM. Mild discomfort right posterior mastoid region without swelling or erythema) Neck exam: Present: lymphadenopathy Respiratory exam: Present: normal lung sounds bilaterally Cardiovascular Exam: Present: regular rate, normal rhythm GI/Abdominal exam: Present: soft. Absent: tenderness Extremities exam: Present: normal inspection Neurological exam: Present: alert, oriented X3, CN II-XII intact. Absent: motor sensory deficit Expanded Neurological exam: Present: protecting the airway Speech: Present: fluid speech Cranial nerves: EOM's Intact: Normal Motor strength exam: RUE: 5, LUE: 5, RLE: 5, LLE: 5 Eye Response: (4) open spontaneously Motor Response: (6) obeys commands Verbal Response: (5) oriented Psychiatric exam: Present: normal affect, normal mood Skin exam: Present: normal color Course Vital Signs 01/21/23 08:58 Temperature 98.5 F Pulse Rate 100 Respiratory 18 Rate Blood Pressure 154/100 O2 Sat by Pulse 100 Oximetry Medical Decision Making - Medical Decision Making Was pt. sent in by a medical professional or institution (, PA, MEAT [employer]ER, urgent care, hospital, or [place] health care facility...) When possible be specific @ -No Did you speak to anyone other than the patient for history (EMS, parent, family, police, friend...)? What history was obtained from this source @ -No Did you review nursing and triage notes (agree or disagree)? Why? @ -I reviewed and agree with nursing and triage notes Were old charts reviewed (outside hosp., previous admission, EMS record, old EKG, old radiological studies, urgent care reports/EKG's, [place] health care facility records)? Report findings @ -No old charts were reviewed Differential Diagnosis (chest pain, altered mental status, abdominal pain women, abdominal pain men, vaginal bleeding, weakness, fever, dyspnea, syncope, headache, dizziness, GI bleed, back pain, seizure, CVA, palpatations, mental health)? @ -Differential Headache: Migraine, tension, cluster, carbon monoxide, central venous thrombosis, pension karma temporal arteritis, acute closure glaucoma, intercranial hemorrhage, mastoiditis, sinusitis, head injury, this is not meant to be an all-inclusive list. EKG interpreted by me (3pts min.). @ -As above X-rays interpreted by me (1pt min.). @ -None done CT interpreted by me (1pt min.). @ -Report reviewed U/S interpreted by me (1pt. min.). @ -None done What testing was considered but not performed or refused? (CT, X-rays, U/S, labs)? Why? @ -None What meds were considered but not given or refused? Why? @ -None Did you discuss the management of the patient with other professionals (professionals i.e. , PA, ME[employer]ER, lab, RT, psych nurse, social service worker, methods analyst data processing, teacher, guest services officer, pillowcase cutter)? Give summary @ -No Was smoking cessation discussed for >3mins.? @ -No Was critical care preformed (if so, how long)? @ -No Were there social determinants of health that impacted care today? How? (Homelessness, low income, unemployed, alcoholism, drug addiction, transportation, low edu. Level, literacy, decrease access to med. care, long-term, rehab)? @ -No Was there de-escalation of care discussed even if they declined (Discuss DNR or withdrawal of care, Hospice)? DNR status @ -No What co-morbidities impacted this encounter? (DM, HTN, Smoking, COPD, CAD, Cancer, CVA, ARF, Chemo, Hep., AIDS, mental health diagnosis, sleep apnea, morbid obesity)? @ -None Was patient admitted / discharged? Hospital course, mention meds given and route, prescriptions, significant lab abnormalities, going to OR and other pertinent info. @ -Patient reevaluated and does have some improvement with medication. Patient does not want further medication at this time. Patient is updated on results and need for follow-up. Patient is recommended ENT and dental follow-up, as well as primary care physician. Patient informed to return for worsening symptoms. Patient does not require antibiotics at this time however will need further investigation with specialist. Undiagnosed new problem with uncertain prognosis? @ -No Drug Therapy requiring intensive monitoring for toxicity (Heparin, Nitro, Insulin, Cardizem)? @ -No Were any procedures done? @ -No Diagnosis/symptom? @ -Headache Acute, or Chronic, or Acute on Chronic? @ -Acute Uncomplicated (without systemic symptoms) or Complicated (systemic symptoms)? @ -default Side effects of treatment? @ -No Exacerbation, Progression, or Severe Exacerbation? @ -No Poses a threat to life or bodily function? How? (Chest pain, USA, CT, pneumonia, PE, COPD, DKA, ARF, appy, cholecystitis, CVA, Diverticulitis, Homicidal, Suicidal, threat to staff... and all critical care pts) @ -No Disposition Clinical Impression: Cephalgia Disposition: HOME SELF-CARE Condition: Stable Instructions (If sedation given, give patient instructions): Acute Headache (ED) Additional Instructions: Please do follow-up with primary care physician in the next day or 2 for recheck. Please also follow-up with ENT and your dentist. Numbers for ENT provided. Return for weakness, confusion, fever, increased pain, swelling, worsening or change in symptoms or any other concerns. Is patient prescribed a controlled substance at d/c from ED?: No Referrals: Caitlin Ordaz NPC [Family Provider] - 1-2 days Cruz Waddell MD [STAFF PHYSICIAN] - 1-2 days Marin Bean MD [STAFF PHYSICIAN] - 1-2 days Time of Disposition: 10:46
--- NOTE | 2023-01-21 09:39 | CT ---
EXAMINATION TYPE: CT brain wo con DATE OF EXAM: 01/21/2023 COMPARISON: None HISTORY: Right posterior auricular pain CT DLP: 1099.8 mGycm. Automated Exposure Control for Dose Reduction was Utilized. TECHNIQUE: CT scan of the head is performed without contrast. FINDINGS: There is no acute intracranial hemorrhage, mass effect, or midline shift identified. The ventricles and sulci are within normal limits in size. The globes are intact and the visualized sin uses are clear. Cerebellar tonsils are low-lying position measuring 2 to 3 mm below the foramen magnu m. IMPRESSION: 1. No acute intracranial hemorrhage, mass effect, or midline shift is seen. 2. Low-lying cerebellar tonsils suspicious for a Chiari I malformation which could be correlated with MRI. Correlate clinically.
[2023-01-21] MEDS ORDERED: traMADol 50 MG STARTER PACK 3 TAB BTL PO STA (10:46)
[2023-01-21 11:00] VITALS: BP 111/73; PULSE 86; RESP 16; TEMP 97.8
== END 2023-01-21 11:00 | disposition home or self-care (01) ==
LOC: EC 08:55
DX: R51.9 Headache, unspecified (principal); J45.909 Unspecified asthma, uncomplicated; F17.200 Nicotine dependence, unspecified, uncomplicated; F12.90 Cannabis use, unspecified, uncomplicated; Z88.5 Allergy status to narcotic agent
CPT/HCPCS: 70450; 99284; 96372 ×2; J1200; J1885

== ENCOUNTER → 2023-04-14 | Outpatient (CLI) | payer OTHER ==
--- NOTE | 2023-04-23 21:33 | HM ---
HOLTER MONITOR REPORT STUDY PERFORMED: A 72-hour Holter monitor. CLINICAL INFORMATION: Baseline rhythm is sinus mechanism with a normal conduction. The average rate 78 beats per minute, minimum 41, maximum 154 beats per minute. Ventricular ectopic activity was present in the form of rare single PVCs. Supraventricular ectopic activity was present in the form of rare single PACs. Symptoms of chest discomfort, lightheaded, and dizzy did not correlate with any dysrhythmia. CONCLUSION: 1. Sinus mechanism baseline rhythm. 2. Rare ventricular ectopic activity. 3. Rare supraventricular ectopic activity. 4. Symptoms did not correlate with any dysrhythmia. MMODL / IJN: [id number] /
== END | disposition home or self-care (01) ==
LOC: RADECHMAIN 11:57
PROVIDERS: ATTEND Family Medicine
DX: I49.3 Ventricular premature depolarization (principal); R00.0 Tachycardia, unspecified; R55 Syncope and collapse
CPT/HCPCS: 93225; 93226

== ENCOUNTER → 2023-04-21 | Outpatient (CLI) | payer OTHER ==
--- NOTE | 2023-04-22 07:55 | MR ---
EXAMINATION TYPE: MR brain wo con DATE OF EXAM: 04/21/2023 COMPARISON: CT brain 01/21/2023 HISTORY: Worsening headaches CONTRAST: Performed utilizing 0 mL intravenous Gadavist gadolinium contrast. TECHNIQUE: Multiplanar, multiecho imaging on a 3.0 Tressa magnet is performed through the brain. Stud y is performed within 24 hours of arrival to the hospital. The craniovertebral junction is normal. There is slight dissent of the left cerebellar tonsil less t bergeron 0.5 cm which can be within normal limits. The pituitary is normal. Optic chiasm is normal. Diffusion-weighted imaging is performed. No abnormal hyperintensity is present to suggest an acute i ntracranial infarct or acute ischemic change. There are scattered punctate areas of hyperintensity on T2 and Inversion Recovery weighted sequences which are non-specific but can be related to microvascular ischemic changes. Ventricles and sulci are appropriate for the patient age. IMPRESSIONS: 1. No suspicious changes MRI brain. 2. No Chiari malformation on current exam.
== END | disposition home or self-care (01) ==
LOC: RADMRIMAIN 06:44
PROVIDERS: ATTEND Family Medicine
DX: R51.9 Headache, unspecified (principal)
CPT/HCPCS: 70551